=== PATIENT | male | born 1960 | race Caucasian/White ===

== ENCOUNTER 2021-10-22 12:36 | Inpatient (IN) ==
[2021-10-22] MEDS ORDERED: MoRPHine SULFATE 4 MG/ML 1 ML CARP\\VIAL IV PRN (13:09)
[2021-10-22] MEDS ORDERED: SODIUM CHLORIDE 0.9% 1000ML 1,000 ML IV STA (13:09)
[2021-10-22] MEDS ORDERED: ONDANSETRON INJ 2 MG/ML 2 ML VIAL IV STA (13:09)
--- NOTE | 2021-10-22 13:18 | Emergency Department Note ---
Impression & Plan Choledocholithiasis, Elevated LFTs, Obstructive jaundice ED Provider Note NAME: OBDULIO GUILLEN AGE: 60 SEX: M : 1960 ARRIVES VIA: Walk-In INFORMANT: Patient, ED PROVIDER(S): Dae Cardona DO CHIEF COMPLAINT: Chest pain HPI: The patient is a 60-year-old male who presented to the emergency department for an evaluation of chest pain. The patient describes a burning that starts in his epigastric region and goes up into his chest. He initially started noticing the symptoms earlier this month. They resolved without any issues. The patient states he had return of the symptoms approximately 2 to 3 days ago. They are b vin than when they started but they continue to occur. He notices it worsening with food. He notices pain that is burning behind his sternum. He went to see his family doctor today and had laboratory studies drawn as an outpatient. He also had an EKG. He was called today by his family doctor and told to go directly to the emergency department for further evaluation of abnormal liver function studies. The patient states he has noticed some right upper quadrant pain. He denies having any vomiting but does note nausea. He also notices some back pain. The patient is noticed no swelling in his legs or fever. He states the pain is mild at this time. ROS: See above HPI for pertinent positives & negatives. A total of 10 systems reviewed and were otherwise negative. PAST MEDICAL HISTORY: See Below PAST SURGICAL HISTORY: See Below FAMILY HISTORY: See Below SOCIAL HISTORY: See Below HOME MEDICATIONS: See Below ALLERGIES: See Below VITALS: See Below PHYSICAL EXAMINATION: GENERAL: Patient is awake alert in no acute distress patient is resting comfortably and showing no signs of anxiety EYES: The conjunctivae are clear. The pupils are round and reactive. EARS, NOSE, MOUTH AND THROAT: The nose is without any evidence of any deformity. Mucous membranes are moist. Tongue is midline. NECK: The neck is nontender and supple. RESPIRATORY: Normal respiratory effort is noted there is no evidence of wheezing rhonchi or rales CARDIOVASCULAR: Regular rate and rhythm noted there no murmurs rubs or gallops normal S1 normal S2. GASTROINTESTINAL: The abdomen is soft and mildly distended. There is right upper quadrant tenderness to palpation but no guarding rigidity. MUSCULOSKELETAL/EXTREMITIES: There is no evidence of gross deformity full range of motion is noted in the hips and shoulders. SKIN: There is no obvious evidence of any rash. There are no petechiae, pallor or cyanosis noted. NEUROLOGIC: Patient is awake alert and oriented x3 MEDICAL DECISION MAKING: The patient is a 60-year-old male who presented to the emergency department with a 3-day history of chest pain. The patient was seen by his primary care physician as an outpatient and was diagnosed with abnormal liver function studies. He was advised to come the emergency department for further evaluation. The patient did have reproducible right upper quadrant abdominal pain on physical exam. I discussed patient's laboratory and radiographic studies with him. He does appear to have a picture of obstructive jaundice. For this reason I discussed this case with the on-call gastroenterology group. The patient may require an ERCP. They have agreed to evaluate the patient in the emergency department for further management and disposition. I also discussed this case with the on-call [facility] hospitalist group. The patient was treated with IV fluids and IV antibiotics in the emergency department. Triage Nursing notes reviewed. Prior medical records reviewed Vital Signs: reviewed and remarkable for elevated blood pressure Differential diagnosis: Cardiac ischemia, aortic dissection, pulmonary embolism, pneumothorax, pneumonia, pericarditis, myocarditis, esophageal rupture, GERD, cholecystitis, pancreatitis, musculoskeletal, as well as other pathologies. ER treatment provided: See below Diagnostics interpreted by me: ECG: EKG was obtained in the emergency department. My interpretation is normal sinus rhythm at 55 bpm. There is no ectopy. There is no acute ST segment abnormalities noted. No previous tracings were available. Cardiac Monitoring: An order was placed for continuous cardiac monitoring. The monitor shows a rate of 54 bpm with sinus bradycardia. Laboratory studies: As stated above and show below. Imaging studies: See below Consultation(s): I discussed this case with Kassandra who is on-call for the [facility] hospitalist group. They will evaluate the patient in the emergency department I discussed this case with Felix who is on-call for [facility] gastroenterology. They will evaluate the patient in the emergency department for further management and disposition Past Med/Surg History Medical History High cholesterol Hypertension Social History Smoking Status: Never smoker Preferred Language: [place] Citizen Feels Safe at Home: Yes Allergies Allergies Allergy/AdvReac Type Severity Reaction Status Date / Time No Known Allergies Allergy Unverified 03/29/14 14:56 Home Meds Home Medications Medication Instructions Recorded Confirmed atenolol 50 mg tablet 50 mg PO DAILY 10/22/21 10/22/21 atorvastatin 20 mg tablet 20 mg PO DAILY 10/22/21 10/22/21 omeprazole 20 mg capsule,delayed 20 mg PO DAILY 10/22/21 10/22/21 release Results & Data (ED) Vital Signs Vital Signs - 24 hr 10/22/21 12:37 10/22/21 12:51 10/22/21 13:43 Temperature 36.4 C L Temperature Source Temporal Artery Scan Pulse Rate 66 Pulse Rate [Apical] Pulse Rhythm [Apical] Pulse Strength [Apical] Respiratory Rate 16 Respiratory Effort / Characteristics Non-Labored Spontaneous Respiratory Depth Normal Respiratory Pattern Blood Pressure 170/103 H Blood Pressure [Left Arm] Blood Pressure Mean 125 Blood Pressure Mean [Left Arm] Blood Pressure Position Sitting Blood Pressure Position [Left Arm] Pulse Oximetry 97 98 Oxygen Delivery Method Room Air Room Air Sepsis Recent Fever Within 48 Hours No Sepsis New/Unexplained Change in Mental Status No Sepsis Action Taken by Nursing No Action Required 10/22/21 13:48 10/22/21 14:00 10/22/21 14:30 Temperature Temperature Source Pulse Rate 67 60 57 L Pulse Rate [Apical] Pulse Rhythm [Apical] Pulse Strength [Apical] Respiratory Rate 19 24 Respiratory Effort / Characteristics Respiratory Depth Respiratory Pattern Blood Pressure Blood Pressure [Left Arm] Blood Pressure Mean Blood Pressure Mean [Left Arm] Blood Pressure Position Blood Pressure Position [Left Arm] Pulse Oximetry 96 96 95 Oxygen Delivery Method Sepsis Recent Fever Within 48 Hours Sepsis New/Unexplained Change in Mental Status Sepsis Action Taken by Nursing 10/22/21 17:50 Temperature 36.8 C Temperature Source Oral Pulse Rate Pulse Rate [Apical] 54 L Pulse Rhythm [Apical] Regular Pulse Strength [Apical] Normal Respiratory Rate 18 Respiratory Effort / Characteristics Non-Labored Spontaneous Respiratory Depth Normal Respiratory Pattern Regular Blood Pressure Blood Pressure [Left Arm] 177/97 H Blood Pressure Mean Blood Pressure Mean [Left Arm] 123 Blood Pressure Position Blood Pressure Position [Left Arm] Sitting Pulse Oximetry 98 Oxygen Delivery Method Room Air Sepsis Recent Fever Within 48 Hours Sepsis New/Unexplained Change in Mental Status Sepsis Action Taken by [facility] Medications Current Medication List: was personally reviewed by me Laboratory Data Attestation: I reviewed the patient's lab results. Result diagrams: 10/22/21 Unknown 10/22/21 Unknown Lab Results 10/22/21 10/22/21 10/22/21 Range/Units Unknown Unknown Unknown WBC 7.66 (4.8-10.8) K/uL RBC 5.31 (4.7-6.1) M/uL Hgb 16.5 (14.0-18.0) g/dL Hct 49.0 (42-52) % MCV 92.3 (80-100) fL MCH 31.1 (25-34) pg MCHC 33.7 (32-36) g/dL RDW Std Deviation 44.5 (36.4-46.3) fL RDW Coeff of Ham 13.3 (11.5-14.5) % Plt Count 282 (130-400) K/uL MPV 10.4 (7.4-10.4) fL Immature Gran % (Auto) 0.4 % Neut % (Auto) 63.2 % Lymph % (Auto) 20.1 % [place] % (Auto) 12.9 % Eos % (Auto) 2.9 % Baso % (Auto) 0.5 % Neut # (Auto) 4.84 (1.4-6.5) K/uL Lymph # (Auto) 1.54 (1.2-3.4) K/uL [place] # (Auto) 0.99 H (0.11-0.59) K/uL Eos # (Auto) 0.22 (0-0.5) K/uL Baso # (Auto) 0.04 (0-0.2) K/uL Immature Gran # (Auto) 0.03 H (0.00-0.02) K/uL PT 10.1 (9.0-12.0) Seconds INR 0.9 (0.9-1.1) APTT 24.2 (21.0-31.0) Seconds PTT Ratio 0.9 Sodium 137 (136-145) mmol/L Potassium 4.0 (3.5-5.1) mmol/L Chloride 107 (98-107) mmol/L Carbon Dioxide 22 (21-32) mmol/L Anion Gap 8 (3-11) BUN 15 (6-23) mg/dl Creatinine 0.99 (0.6-1.4) mg/dl Est Cr Clr Drug Dosing 97.9 ml/min Est GFR ( Amer) 95.5 ml/min Est GFR (Non-Af Amer) 82.4 ml/min BUN/Creatinine Ratio 15.2 (10-20) Glucose 91 (70-99(Fasting)) mg/dl Calcium 9.1 (8.5-10.1) mg/dl Total Bilirubin 4.0 H (0.2-1.0) mg/dl Direct Bilirubin 2.1 H (0-0.2) mg/dl AST 336 H (13-39) U/L ALT 848 H (7-52) U/L Alkaline Phosphatase 242 H (34-104) U/L Troponin I High Sens 4.5 (0-20) pg/ml Total Protein 7.0 (6.0-8.3) gm/dl Albumin 4.3 (3.4-5.0) gm/dl Globulin 2.7 (2.5-4.0) gm/dl Albumin/Globulin Ratio 1.6 (0.9-2) Lipase 43 (11-82) U/L Urine Color Urine Appearance (Clear) Urine pH (4.5-7.5) Ur Specific [place] (1.000-1.030) Urine Protein (Negative) Urine Glucose (UA) (Negative) Urine Ketones (Negative) Urine Blood (Negative) Urine Nitrite (Negative) Urine Bilirubin (Negative) Urine Urobilinogen (Negative) Ur Leukocyte Esterase (Negative) Urine WBC (Auto) (0-5) /hpf Urine RBC (Auto) (0-4) /hpf U Hyaline Cast (Auto) (0-5) /lpf U Epithel Cells (Auto) (0-5) /lpf Urine Bacteria (Auto) (Negative) SARS-CoV-2, RNA, NAAT (NEGATIVE) 10/22/21 10/22/21 Range/Units Unknown Unknown WBC (4.8-10.8) K/uL RBC (4.7-6.1) M/uL Hgb (14.0-18.0) g/dL Hct (42-52) % MCV (80-100) fL MCH (25-34) pg MCHC (32-36) g/dL RDW Std Deviation (36.4-46.3) fL RDW Coeff of Ham (11.5-14.5) % Plt Count (130-400) K/uL MPV (7.4-10.4) fL Immature Gran % (Auto) % Neut % (Auto) % Lymph % (Auto) % [place] % (Auto) % Eos % (Auto) % Baso % (Auto) % Neut # (Auto) (1.4-6.5) K/uL Lymph # (Auto) (1.2-3.4) K/uL [place] # (Auto) (0.11-0.59) K/uL Eos # (Auto) (0-0.5) K/uL Baso # (Auto) (0-0.2) K/uL Immature Gran # (Auto) (0.00-0.02) K/uL PT (9.0-12.0) Seconds INR (0.9-1.1) APTT (21.0-31.0) Seconds PTT Ratio Sodium (136-145) mmol/L Potassium (3.5-5.1) mmol/L Chloride (98-107) mmol/L Carbon Dioxide (21-32) mmol/L Anion Gap (3-11) BUN (6-23) mg/dl Creatinine (0.6-1.4) mg/dl Est Cr Clr Drug Dosing ml/min Est GFR ( Amer) ml/min Est GFR (Non-Af Amer) ml/min BUN/Creatinine Ratio (10-20) Glucose (70-99(Fasting)) mg/dl Calcium (8.5-10.1) mg/dl Total Bilirubin (0.2-1.0) mg/dl Direct Bilirubin (0-0.2) mg/dl AST (13-39) U/L ALT (7-52) U/L Alkaline Phosphatase (34-104) U/L Troponin I High Sens (0-20) pg/ml Total Protein (6.0-8.3) gm/dl Albumin (3.4-5.0) gm/dl Globulin (2.5-4.0) gm/dl Albumin/Globulin Ratio (0.9-2) Lipase (11-82) U/L Urine Color Dark Yellow Urine Appearance Clear (Clear) Urine pH 5.0 (4.5-7.5) Ur Specific [place] 1.026 (1.000-1.030) Urine Protein Negative (Negative) Urine Glucose (UA) Negative (Negative) Urine Ketones 1+ H (Negative) Urine Blood Negative (Negative) Urine Nitrite Positive A (Negative) Urine Bilirubin 2+ H (Negative) Urine Urobilinogen Negative (Negative) Ur Leukocyte Esterase Negative (Negative) Urine WBC (Auto) 1-5 (0-5) /hpf Urine RBC (Auto) 5-10 H (0-4) /hpf U Hyaline Cast (Auto) 1-5 (0-5) /lpf U Epithel Cells (Auto) 0-5 (0-5) /lpf Urine Bacteria (Auto) Negative (Negative) SARS-CoV-2, RNA, NAAT NEGATIVE (NEGATIVE) Administered Medications Morphine Sulfate (Morphine Sulfate 4 Mg/Ml 1 Ml Carp\Vial) 4 mg IV Q15M PRN PRN Reason: Pain Stop: 11/05/21 13:08 Last Admin: 10/22/21 13:38 Dose: 4 mg Documented by: [id number] Discontinued Medications Sodium Chloride (Nss 1000ml) 1,000 mls @ 999 mls/hr IV .Q1H1M STA Stop: 10/22/21 14:09 Last Infusion: 10/22/21 14:44 Dose: 0 mls/hr Documented by: [id number] Admin: 10/22/21 13:38 Dose: 999 mls/hr Documented by: [id number] Piperacillin Sod/Tazobactam Sod (Zosyn) 4.5 gm in 120 mls @ 240 mls/hr IV NOW ONE Stop: 10/22/21 16:21 Last Infusion: 10/22/21 17:02 Dose: 0 mls/hr Documented by: [id number] Admin: 10/22/21 16:30 Dose: 240 mls/hr Documented by: [id number] Ondansetron HCl (Ondansetron Inj 2 Mg/Ml 2 Ml Vial) 4 mg IV NOW STA Stop: 10/22/21 13:10 Last Admin: 10/22/21 13:38 Dose: 4 mg Documented by: [id number] Imaging Data Radiologist's Impression: Gallbladder Ultrasound 10/22/21 13:09 US gallbladder LIMITED ABDOMEN CLINICAL HISTORY: RUQ pain. COMPARISON: None. TECHNIQUE: Multiple grayscale and color images of the right upper quadrant of the abdomen. FINDINGS: Pancreas: The pancreas is within normal limits with no focal mass or peripancreatic fluid collection identified. Liver: The liver is homogeneous in echogenicity There is no evidence for a focal mass. There is evidence for intrahepatic biliary duct dilatation. Gallbladder: The gallbladder is filled with sludge. No definite calculi are seen. However, there is wall thickening measuring 4 mm. No sonographic Durbin sign is seen. Common Bile Duct: (CBD): There is dilatation of the common bile duct is well measuring 9 mm. Inferior Vena Cava (IVC): The imaged IVC is patent. Right kidney: There is evidence for an exophytic solid renal mass projecting from the mid body measuring 3.3 x 2.3 x 2.8 cm. The kidney is normal in size. IMPRESSION: 1. Gallbladder filled with sludge with wall thickening. No pericholecystic edema. 2. Dilatation of the common bile duct and intrahepatic biliary duct radicles. The presence of choledocholithiasis cannot be excluded. 3. Evidence for solid mass projecting exophytically from the mid body of the right kidney. 4. Follow-up CT of the abdomen and pelvis without and with contrast utilizing renal mass protocol along with MRCP could be obtained for further evaluation. ACT 112: Negative or not required by law. Electronically signed by: Murali Rodriguez M.D. 10/22/2021 3:19 PM KUB X-Ray 10/22/21 13:09 XR KUB/Abdomen 1 view CLINICAL HISTORY: RUQ pain. COMPARISON STUDY: 03/29/2014 TECHNIQUE: 2 supine radiographs of the abdomen FINDINGS: The bowel gas pattern is within normal limits without evidence for dilatation or obstruction. There is no evidence for organomegaly or gross intra-abdominal mass. No abnormal calcifications are seen along the course of the urinary tracts bilaterally. No acute osseous pathology. IMPRESSION: 1. No acute intra-abdominal abnormality. ACT 112: Negative or not required by law. Electronically signed by: Murali Rodriguez M.D. 10/22/2021 1:31 PM Chest X-Ray 10/22/21 13:10 XR chest 1V portable CLINICAL HISTORY: Right upper quadrant abdominal pain. COMPARISON STUDY: No previous studies for comparison. FINDINGS: Lung volumes are normal. Lungs are clear. There is no pneumothorax or pleural effusion. Cardiac size is normal. Mediastinal contours are normal. There is no evidence for pulmonary edema. IMPRESSION: No acute cardiopulmonary findings. ACT 112: Negative or not required by law. Electronically signed by: Raul Suarez M.D. 10/22/2021 1:33 PM Discharge Plan Visit Data Chief Complaint: Abdominal Pain Stated Complaint: BURNING IN ABDOMIN, BACK PAIN, REF BY ED Provider: Dae Cardona Discharge Problem: Choledocholithiasis, Elevated LFTs, Obstructive jaundice Patient Disposition: Being Evaluated by Hospitalist Discharge Instructions Interventions: ED Discharge Assessment Last Done: 10/22/21 17:48
--- NOTE | 2021-10-22 13:32 | XRay Report ---
XR KUB/Abdomen 1 view CLINICAL HISTORY: RUQ pain. COMPARISON STUDY: 03/29/2014 TECHNIQUE: 2 supine radiographs of the abdomen FINDINGS: The bowel gas pattern is within normal limits without evidence for dilatation or obstruction. There i s no evidence for organomegaly or gross intra-abdominal mass. No abnormal calcifications are seen annie ng the course of the urinary tracts bilaterally. No acute osseous pathology. IMPRESSION: 1. No acute intra-abdominal abnormality. ACT 112: Negative or not required by law. Electronically signed by: Murali Rodriguez M.D. 10/22/2021 1:31 PM
--- NOTE | 2021-10-22 13:34 | XRay Report ---
XR chest 1V portable CLINICAL HISTORY: Right upper quadrant abdominal pain. COMPARISON STUDY: No previous studies for comparison. FINDINGS: Lung volumes are normal. Lungs are clear. There is no pneumothorax or pleural effusion. Car diac size is normal. Mediastinal contours are normal. There is no evidence for pulmonary edema. IMPRESSION: No acute cardiopulmonary findings. ACT 112: Negative or not required by law. Electronically signed by: Raul Suarez M.D. 10/22/2021 1:33 PM
[2021-10-22 14:06] LABS: INR 0.9 (0.9-1.1); Partial Thromboplastin Ratio 0.9; Partial Thromboplastin Time 24.2 Seconds (21.0-31.0); Prothrombin Time 10.1 Seconds (9.0-12.0)
[2021-10-22 14:16] LABS: Troponin I High Sensitivity 4.5 pg/ml (0-20)
[2021-10-22 14:40] LABS: Basophils # (auto) 0.04 K/uL (0-0.2); Basophils % (auto) 0.5 %; Eosinophils # (auto) 0.22 K/uL (0-0.5); Eosinophils % (auto) 2.9 %; Hemoglobin 16.5 g/dL (14.0-18.0); Immature Granulocytes # (auto) 0.03 K/uL (0.00-0.02); Immature Granulocytes % (auto) 0.4 %; Lymphocytes # (auto) 1.54 K/uL (1.2-3.4); Lymphocytes % (auto) 20.1 %; Mean Corpuscular Hemoglobin 31.1 pg (25-34); Mean Corpuscular Hgb Conc 33.7 g/dL (32-36); Mean Corpuscular Volume 92.3 fL (80-100); Mean Platelet Volume 10.4 fL (7.4-10.4); Monocytes # (auto) 0.99 K/uL (0.11-0.59); Monocytes % (auto) 12.9 %; Neutrophils # (auto) 4.84 K/uL (1.4-6.5); Neutrophils % (auto) 63.2 %; Platelet Count 282 K/uL (130-400); RDW Coefficient of Variation 13.3 % (11.5-14.5); RDW Standard Deviation 44.5 fL (36.4-46.3); Red Blood Count 5.31 M/uL (4.7-6.1); White Blood Count 7.66 K/uL (4.8-10.8)
[2021-10-22 14:52] LABS: Albumin Globulin Ratio 1.6 (0.9-2); Albumin Level 4.3 gm/dl (3.4-5.0); BUN Creatinine Ratio 15.2 (10-20); Calcium 9.1 mg/dl (8.5-10.1); Creatinine Clr Calc Pharmacy 97.9 ml/min; Est GFR (African American) 95.5 ml/min; Est GFR (Non-African American) 82.4 ml/min; Globulin 2.7 gm/dl (2.5-4.0)
[2021-10-22 15:16] LABS: Bilirubin Direct 2.1 mg/dl (0-0.2)
--- NOTE | 2021-10-22 15:21 | Ultrasound Report ---
US gallbladder LIMITED ABDOMEN CLINICAL HISTORY: RUQ pain. COMPARISON: None. TECHNIQUE: Multiple grayscale and color images of the right upper quadrant of the abdomen. FINDINGS: Pancreas: The pancreas is within normal limits with no focal mass or peripancreatic fluid collection identified. Liver: The liver is homogeneous in echogenicity There is no evidence for a focal mass. There is evide nce for intrahepatic biliary duct dilatation. Gallbladder: The gallbladder is filled with sludge. No definite calculi are seen. However, there is w all thickening measuring 4 mm. No sonographic Durbin sign is seen. Common Bile Duct: (CBD): There is dilatation of the common bile duct is well measuring 9 mm. Inferior Vena Cava (IVC): The imaged IVC is patent. Right kidney: There is evidence for an exophytic solid renal mass projecting from the mid body measur ing 3.3 x 2.3 x 2.8 cm. The kidney is normal in size. IMPRESSION: 1. Gallbladder filled with sludge with wall thickening. No pericholecystic edema. 2. Dilatation of the common bile duct and intrahepatic biliary duct radicles. The presence of choledo cholithiasis cannot be excluded. 3. Evidence for solid mass projecting exophytically from the mid body of the right kidney. 4. Follow-up CT of the abdomen and pelvis without and with contrast utilizing renal mass protocol annie ng with MRCP could be obtained for further evaluation. ACT 112: Negative or not required by law. Electronically signed by: Murali Rodriguez M.D. 10/22/2021 3:19 PM
[2021-10-22] MEDS ORDERED: PIPERACILL/TAZOBAC CONSULT ACTIVE PRN ×2 (15:52→19:47)
[2021-10-22] MEDS ORDERED: PIPERACILLIN/TAZOBACTAM 4.5 GM/120 ML BAG IV ONE (15:52)
--- NOTE | 2021-10-22 16:01 | Electrocardiogram Report ---
Test Reason : Blood Pressure : / mmHG Vent. Rate : 055 BPM Atrial Rate : 055 BPM P-R Int : 194 ms QRS Dur : 086 ms QT Int : 460 ms P-R-T Axes : 059 003 012 degrees QTc Int : 440 ms Poor data quality, interpretation may be adversely affected Sinus bradycardia Otherwise normal ECG No previous ECGs available Confirmed by Dae Woodall ([id number]) on 10/22/2021 4:01:13 PM Referred By: REFERRED SELF Confirmed By:Dae Woodall
[2021-10-22] MEDS ORDERED: INDOMETHACIN 50 MG SUPP PR ONE (16:08)
--- NOTE | 2021-10-22 16:18 | Gastrointestinal Consultation ---
Date of Consultation October 22, 2021 Assessment & Plan (1) Dilated cbd, acquired: (2) Elevated LFTs: (3) Gallbladder sludge: Pt is a 60 yo male, with abd pain, dark urine, elevated LFTs, noted to have dilated CBD and gallbladder sludge on US. Suspect choledocholithiasis. - Keep NPO - ERCP in OR by Dr. Mata today - IV antibx - Renal mass workup per primary - Recommend Surgery eval after ERCP for possible cholecystectomy Supervising Physician Co-Signing Physician Notes I saw and evaluated the patient. He presents with several days of intermittent biliary colic. He visited his primary care provider today and was found to have a significant elevation of his liver associated enzymes. Ultrasound imaging in the emergency room shows evidence of a dilated common bile duct and choledocholithiasis within the gallbladder. The patient reports that due to postprandial nausea his last meal was yesterday evening. He did have some seltzer water earlier today but it is clear liquid. Physical examination Scleral icterus noted Right upper quadrant tenderness noted Impression: Presenting with signs and symptoms suggestive of choledocholithiasis. Based on the patient's bilirubin of being greater than 3.5 this time pretest probability for choledocholithiasis is very high. Given this we will proceed with ERCP at next available. I have discussed the risks and benefits of ERCP to include bleeding, infection, perforation, pain, pancreatitis, failed biliary cannulation, and need for follow-up studies with the patient. Recommendations n.p.o. IV hydration, agree with broad-spectrum antibiotic coverage, ERCP at next available, general surgery consultation to discuss cholecystectomy History of Present Illness Reason for Consultation: Abd pain, elevated LFTs, jaundice Requesting Physician: Dr. Dae Cardona Attending Physician: Dr. Kylah Mata History of Present Illness Pt is a 60 yo female who was referred to the ED for elevated LFTs. He had symptoms of burning abd pain radiating mid chest up esophagus area and back, which felt like heartburn starting on 10/02; also had dark urine. Symptoms persist and today, decided he'd get evaluated by PCP. EKG, labs ordered, sent to ED for elevated LFTs. Denies fever, chills, n/v. LFTs: Tbili 4, AST 336, ALT 848, Alk 242, Lipase 43. Gallbladder u/s: 1. Gallbladder filled with sludge with wall thickening. No pericholecystic edema. 2. Dilatation of the common bile duct and intrahepatic biliary duct radicles. The presence of choledocholithiasis cannot be excluded. 3. Evidence for solid mass projecting exophytically from the mid body of the right kidney. 4. Follow-up CT of the abdomen and pelvis without and with contrast utilizing renal mass protocol along with MRCP could be obtained for further evaluation. Allergies Allergy/AdvReac Type Severity Reaction Status Date / Time No Known Allergies Allergy Unverified 03/29/14 14:56 Home Medications Medication Instructions Recorded Confirmed Type atenolol 50 mg tablet 50 mg PO DAILY 10/22/21 10/22/21 History atorvastatin 20 mg tablet 20 mg PO DAILY 10/22/21 10/22/21 History omeprazole 20 mg capsule,delayed 20 mg PO DAILY 10/22/21 10/22/21 History release Patient History Medical History High cholesterol Hypertension Social History Smoking Status: Never smoker Preferred Language: Greek Feels Safe at Home: Yes Review of Systems Review of Systems: All systems reviewed & are unremarkable except as noted in HPI & below Physical Exam Constitutional: WD/WN, vitals as above well groomed, cooperative and comfortable Eyes: mild icteric sclera ENMT: external ear and nose normal, oropharynx normal Respiratory: normal respiratory effort, lungs clear to auscultation Cardiovascular: RRR, no murmur, no edema Gastrointestinal (Abdomen): normal bowel sounds, soft, nontender, no hepat osplenomegaly Skin: no rashes, warm and dry no jaundice Psychiatric: A+Ox3, euthymic affect Lymphatic: no lymphedema Results & Data ([facility]) Vital Signs (Past 12 Hours) Vital Signs Temp Pulse Resp BP Pulse Ox 10/22/21 14:30 57 L 24 95 10/22/21 14:00 60 96 10/22/21 13:48 67 19 96 10/22/21 13:43 98 10/22/21 12:51 36.4 C L 66 16 170/103 H 97
[2021-10-22 16:22] LABS: Appearance Urine Clear (Clear); Bacteria Urine Automated Negative (Negative); Blood Urine Negative (Negative); Color Urine Dark Yellow; Epithelial Cell Urine Auto 0-5 /lpf (0-5); Glucose Urine UA Negative (Negative); Ketones Urine 1+ (Negative); Leukocyte Esterase Urine Negative (Negative); Nitrite Urine Positive (Negative); Protein Urine Negative (Negative); Specific Gravity Urine 1.026 (1.000-1.030); Urobilinogen Urine Negative (Negative)
[2021-10-22] MEDS ORDERED: INDOMETHACIN 50 MG SUPP PR STA (16:33)
[2021-10-22 16:45] LABS: Bilirubin Urine 2+ (Negative)
--- NOTE | 2021-10-22 18:13 | Anesthesiology Consultation ---
Date of Service October 22, 2021 Assessment & Plan Chart Review Chart Review: Acceptable Risk for Surgery and Patient NOT seen in Pre Admission Testing Consults Requested none ASA ASA2 Proposed Anesthesia Anesthesia Type: General Risk / Benefits Reviewed With: PT / POA / Parent / Guardian, Accepts Plan and Informed Consent Obtained History Surgery Operation Date: 10/22/21 17:55 Proposed Procedures p Endoscopic Retrograde Cholangiopancreato - Kylah Mata, Height/Weight Height: 6 ft Weight: 101.6 kg Allergies Allergy/AdvReac Type Severity Reaction Status Date / Time No Known Allergies Allergy Unverified 03/29/14 14:56 Medications Home Medications Medication Instructions Recorded Confirmed Last Taken atenolol 50 mg tablet 50 mg PO DAILY 10/22/21 10/22/21 Unknown atorvastatin 20 mg tablet 20 mg PO DAILY 10/22/21 10/22/21 Unknown omeprazole 20 mg capsule,delayed 20 mg PO DAILY 10/22/21 10/22/21 Unknown release Active Medications Generic Name Dose Route Start Last Admin Trade Name Freq PRN Reason Stop Dose Admin Morphine Sulfate 4 mg 10/22/21 13:09 10/22/21 13:38 Morphine Sulfate 4 Mg/Ml 1 Ml Carp\\Vial IV 11/05/21 13:08 4 mg Q15M PRN Administration Pain NPO Date Last Intake of Fluids: 10/22/21 Time Last Intake of Fluids: 11:00 Last Intake of Fluids Comment: "sips of water" Date Last Intake of Solids: 10/21/21 Time Last Intake of Solids: 23:00 Past Medical History Medical History High cholesterol Hypertension Exercise / Class Metabolic Activity II 4-5 Yardwork/Stairs/Walk up hill Past Anesthesia History No Hx of Anesthesia Complications and No Family Hx of Anesthesia Complications History of PONV No Hx of PONV and No Hx of Motion Sickness Social History Smoking Status: Never smoker Physical Exam Vital Signs Last Vital Signs Temp 36.8 C 10/22/21 17:50 Pulse 54 L 10/22/21 17:50 Resp 18 10/22/21 17:50 BP 177/97 H 10/22/21 17:50 Pulse Ox 98 10/22/21 17:50 ENMT Mouth: no dentition abnormality Thyromental Distance: > or= 3.5 Finger Breadths Mallampati Class: II Neck normal visual inspection Respiratory normal respiratory effort Auscultation: lungs clear to auscultation bilaterally Cardiovascular Rate/Rhythm: regular rate and regular rhythm Psychiatric Orientation: alert Testing Laboratory Results 10/22/21 Unknown 10/22/21 Unknown PT 10.1 Seconds (9.0-12.0) 10/22/21 Unknown INR 0.9 (0.9-1.1) 10/22/21 Unknown APTT 24.2 Seconds (21.0-31.0) 10/22/21 Unknown Urine Color Dark Yellow 10/22/21 Unknown Urine Appearance Clear (Clear) 10/22/21 Unknown Urine pH 5.0 (4.5-7.5) 10/22/21 Unknown Ur Specific [place] 1.026 (1.000-1.030) 10/22/21 Unknown Urine Protein Negative (Negative) 10/22/21 Unknown Urine Glucose (UA) Negative (Negative) 10/22/21 Unknown Urine Ketones 1+ (Negative) H 10/22/21 Unknown Urine Nitrite Positive (Negative) A 10/22/21 Unknown Ur Leukocyte Esterase Negative (Negative) 10/22/21 Unknown Urine WBC (Auto) 1-5 /hpf (0-5) 10/22/21 Unknown Urine RBC (Auto) 5-10 /hpf (0-4) H 10/22/21 Unknown U Hyaline Cast (Auto) 1-5 /lpf (0-5) 10/22/21 Unknown U Epithel Cells (Auto) 0-5 /lpf (0-5) 10/22/21 Unknown Urine Bacteria (Auto) Negative (Negative) 10/22/21 Unknown
[2021-10-22] MEDS ORDERED: ATROPINE SULFATE 0.1 MG/ML 10ML SYR IV PRN (18:14)
[2021-10-22] MEDS ORDERED: ONDANSETRON INJ 2 MG/ML 2 ML VIAL IV PRN ×2 (18:14→19:47)
[2021-10-22] MEDS ORDERED: ePHEDrine sulfate 50 MG/ML AMP IV PRN (18:14)
[2021-10-22] MEDS ORDERED: PROMETHAZINE HCL 6.25 MG in SODIUM CHLORIDE 0.9% 50 ML IV PRN (18:14)
[2021-10-22] MEDS ORDERED: fentaNYL citrate 100 MCG/2 ML VIAL IV PRN (18:14)
[2021-10-22] MEDS ORDERED: LIDOCAINE 2% 2 ML VIAL/AMP(20MG/ML) INFIL ONE (18:23)
[2021-10-22] MEDS ORDERED: ONDANSETRON INJ 2 MG/ML 2 ML VIAL ONE (18:23)
[2021-10-22] MEDS ORDERED: SUCCINYLCHOLINE CHLORIDE 20 MG/ML 10 ML VIAL IV ONE (18:23)
[2021-10-22] MEDS ORDERED: PROPOFOL IV EMULSION 10 MG/ML 20 ML VIAL IV ONE (18:23)
[2021-10-22] MEDS ORDERED: MIDAZOLAM HCL 1 MG/ML 2ML VIAL ONE (18:23)
[2021-10-22] MEDS ORDERED: fentaNYL citrate 100 MCG/2 ML VIAL ONE (18:23)
[2021-10-22] MEDS ORDERED: DEXAMETHASONE SOD INJ 4 MG/ML VIAL ONE (18:23)
--- NOTE | 2021-10-22 19:08 | GI REPORT ---
Patient Name: Jose Rafael Tobin Procedure Date: 10/22/2021 4:57 PM Date of : 1960 Admit Type: Emergency Department Age: 60 Gender: Male Attending MD: Kylah Mata DO Procedure: ERCP Providers: Kylah Mata DO Referring MD: Dae Cardona Indications: Abdominal pain of suspected biliary origin, Jaundice, Elevated liver enzymes Medicines: General Anesthesia Complications: No immediate complications. Estimated blood loss: Minimal. Estimated Blood Loss: Estimated blood loss was minimal. Procedure: Pre-Anesthesia Assessment: - Prior to the procedure, a History and Physical was performed, and patient medications, allergies and sensitivities were reviewed. The patient's tolerance of previous anesthesia was reviewed. - The risks and benefits of the procedure and the sedation options and risks were discussed with the patient. All questions were answered and informed consent was obtained. - Patient identification and proposed procedure were verified prior to the procedure by the physician, the nurse and the coremaker helper. The procedure was verified in the procedure room. - Pre-procedure physical examination revealed no contraindications to sedation. - ASA Grade Assessment: III - A patient with severe systemic disease. - After reviewing the risks and benefits, the patient was deemed in satisfactory condition to undergo the procedure. - The anesthesia plan was to use monitored anesthesia care (MAC). - Immediately prior to administration of medications, the patient was re-assessed for adequacy to receive sedatives. - The heart rate, respiratory rate, oxygen saturations, blood pressure, adequacy of pulmonary ventilation, and response to care were monitored throughout the procedure. - The physical status of the patient was re-assessed after the procedure. After obtaining informed consent, the scope was passed under direct vision. Throughout the procedure, the patient's blood pressure, pulse, and oxygen saturations were monitored continuously. The Duodenoscope was introduced through the mouth, and advanced to the duodenum and used to cannulate the bile duct. The ERCP was accomplished without difficulty. The patient tolerated the procedure well. Findings: The registered medical assistant film was normal. The esophagus was successfully intubated under direct vision without detailed examination of the pharynx, larynx, and associated structures, and upper GI tract. The upper GI tract was grossly normal. The major papilla was congested. The bile duct was deeply cannulated with the short-nosed traction sphincterotome and guidewire. Contrast was injected. I personally interpreted the bile duct images. Contrast extended to the hepatic ducts. The biliary orifice was stenotic. This appeared benign. The lower third of the main bile duct contained filling defect(s) thought to be a stone. Biliary sphincterotomy was made with a Fusion OMNI sphincterotome using ERBE electrocautery. There was no post-sphincterotomy bleeding. To discover objects, the biliary tree was swept with a 12 mm balloon starting at the bifurcation. Sludge was swept from the duct. Two stones were removed. No stones remained. One 10 Fr by 7 cm biliary stent with a single external flap and a single internal flap was placed 7 cm into the common bile duct. Bile flowed through the stent. The stent was in good position. The endoscope was withdrawn from the patient. The total fluoroscopy exposure time was 22 seconds. Indomethacin 100 mg was given via suppository to decrease the risk of post-ERCP pancreatitis (PEP). Impression: - The major papilla appeared congested. - Biliary papillary stenosis, benign. - Choledocholithiasis was found. Complete removal was accomplished by biliary sphincterotomy and balloon extraction. - A biliary sphincterotomy was performed. - One biliary stent was placed into the common bile duct. - Indomethacin given to decrease risk of post-ERCP pancreatitis. Recommendation: - Avoid aspirin and nonsteroidal anti-inflammatory medicines for 1 week. - Clear liquid diet today. - Use broad spectrum antibiotics for 10 days. - Repeat ERCP in 6 weeks to remove stent. - Refer to a surgeon to disucss cholecystectomy. Kylah Mata D.O. Kylah Mata, 10/22/2021 7:07:27 PM This report has been signed electronically. Note Initiated On: 10/22/2021 4:57 PM Number of Addenda: 0 I attest to the content of the Intraoperative Record and orders documented therein, exceptions below {[id number]}
--- NOTE | 2021-10-22 19:08 | Post Operative Brief Note ---
Immediate Post Op Note v1 Date of Surgery October 22, 2021 Pre & Post Diagnosis Operation Date: 10/22/21 17:55 Pre-Op Diagnosis: Choledocholithiasis Post-Op Diagnosis: Choledocholithiasis I identified the patient and participated in the time-out.: Yes Procedure Operation Date: 10/22/21 17:55 Actual Procedures p Endoscopic Retrograde Cholangiopancreatogram, with Biliary Stent Placement(Not Applicable) - Kylah Mata DO Surgeon Kylah Mata DO Dermatologist none Estimated Blood Loss 0 Findings Consistent with Post-Op Diagnosis
--- NOTE | 2021-10-22 19:18 | Communication Note ---
Date of Service: October 22, 2021 The patient underwent ERCP this evening for suspected choledocholithiasis. We found evidence of stones within the common bile duct and thick sludge within the biliary tree. A biliary sphincterotomy was performed, gallstone extraction performed and a biliary stent was placed. Recommendations Patient may have clear liquids from our perspective this evening Avoid nonsteroidals for 1 week Continue antibiotics for total of 10 days Repeat ERCP for stent removal in 6 weeks General surgery consultation to discuss timing of cholecystectomy Please call with any questions or concerns
--- NOTE | 2021-10-22 19:52 | Anesthesiology Progress Note ---
Date of Service October 22, 2021 Anesthesia Post Procedure Vital Signs Vital Signs: Temp Pulse Pulse Resp BP BP Pulse Ox 10/22/21 19:25 36.2 C L 59 L 16 130/80 97 10/22/21 19:20 62 16 122/78 96 10/22/21 19:14 36.0 C L 73 16 148/78 H 93 10/22/21 17:50 36.8 C 54 L 18 177/97 H 98 10/22/21 14:30 57 L 24 95 10/22/21 14:00 60 96 10/22/21 13:48 67 19 96 10/22/21 13:43 98 10/22/21 12:51 36.4 C L 66 16 170/103 H 97 Transfer of Care Handoff Completed per policy Notes Mental Status: alert / awake / arousable Patient Amnestic to Procedure: Yes Nausea / Vomiting: adequately controlled Pain: adequately controlled Airway Patency, RR, SpO2: stable & adequate BP & HR: stable & adequate Hydration State: stable & adequate Anesthetic Complications: no major complications apparent
[2021-10-22] MEDS: D5W AND NSS 1,000 ML IV SCH (19:56)
--- NOTE | 2021-10-22 19:59 | Fluoroscopy Report ---
INTRAOPERATIVE RADIOGRAPHS CLINICAL HISTORY: ERCP. Fluoroscopy time: 22 seconds. FINDINGS: 3 spot fluoroscopic views of the right upper quadrant are correlated with abdominal ultraso und dated 10/22/2021. There is smooth contrast opacification of the common bile duct. There is mild in tra and extrahepatic biliary ductal dilatation. IMPRESSION: Intraoperative ERCP images as above. See operative report for detailed findings. Electronically signed by: Noble Frost M.D. 10/22/2021 7:58 PM
--- NOTE | 2021-10-22 20:12 | History & Physical Report ---
Date of Service October 22, 2021 Assessment & Plan (1) Elevated LFTs: (2) Gallbladder sludge: (3) Right kidney mass: (4) HTN (hypertension): (5) HLD (hyperlipidemia): (6) MICHAEL (obstructive sleep apnea): Plan: Pt is a 60 y/o M with hx of HTN, HLD, MICHAEL (not on CPAP), GERD admitted for elevated LFTs with Gallstones Elevated LFTs with Gallbladder sludge and dilated common bile duct: -pt is currently asymptomatic - VSS - GI consulted: pt underwent ERCP-stone removed within the common bile duct, biliary sphincterectomy with biliary stent placement. -Spoke to Surgery: possible cholecystectomy [place] --- thus NPO -will do D5 NS maintenance fluids -will continue zosyn as empiric treatment for now UA + for nitrite: -pt denied any urinary symptoms except for dark urine -currently on Zosyn for empiric treatment for gallstone and possible cholecystitis -not suspecting UTI incidental Solid mass of the R kidney: -pt denied any hx of hematuria -denied any acute back pain -will get CT abd to evaluate the renal mass HTN/HLD/GERD: -will continue current home meds Diet: NPO DVT PPx: SCD Code Status:FULL CODE Admission and Anticipated Discharge Date Admission Date: October 22, 2021 History of Present Illness Chief Complaint: Elevated LFTs with prior hx of abd pain Primary Care Provider: Rufino Velasquez DO Pt is a 60 y/o M with hx of HTN, HLD, MICHAEL (not on CPAP), GERD came into the ER for 2 episodes of abd burning pain. Abd pain starts at the lower abd then radiates to the epigastric area. No associated N/V, dizziness, diarrhea or CP or SOB. He also noticed that his urine was dark in colour recently but denied any dysuria, hematuria, urinary frequency/urgency or fever. He had labs done at the clinic today, his LFTs were elevated therefore he was asked to go to the ER At bedside: pt denied any acute symptoms. Allergies Allergy/AdvReac Type Severity Reaction Status Date / Time No Known Allergies Allergy Unverified 03/29/14 14:56 Home Medications Medication Instructions Recorded Confirmed Type atenolol 50 mg tablet 50 mg PO DAILY 10/22/21 10/22/21 History atorvastatin 20 mg tablet 20 mg PO DAILY 10/22/21 10/22/21 History omeprazole 20 mg capsule,delayed 20 mg PO DAILY 10/22/21 10/22/21 History release Past Med/Surg History Medical History High cholesterol Hypertension Social History Smoking Status: Never smoker Hx Alcohol Use: No Hx Substance Use: No Preferred Language: German Communication Ability: Effective Retention Manager Required: No Beliefs That Will Affect Care: None Current Living Situation: Alone Feels Safe at Home: Yes Safety Concerns: Feels Safe At This Time Assistive Devices: Glasses Review of Systems Review of Systems: At least 10 Review of systems were reviewed and all negative except as indicated in HPI Physical Exam Physical Exam: General:. NAD, well developed, well nourished, average body habitus HEENT:. Normocephalic and atraumatic, Normal Conjunctiva, EOMI, Sclera is non- icteric Lungs:. No signs of respiratory distress, CTA, no wheezing or crackles Heart:. Normal S1, S2, no murmur Abdominal:.obese abd, ND, Soft, NT, normal BS MSK:. No deformities of UE and LE, No leg edema Skin:. no rash or open wound Psych:. AAOx3, normal affect Results & Data Results & Data ([facility]) Vital Signs (Past 12 Hours) Vital Signs Temp Pulse Pulse Resp BP BP Pulse Ox 10/22/21 19:25 36.2 C L 59 L 16 130/80 97 10/22/21 19:20 62 16 122/78 96 10/22/21 19:14 36.0 C L 73 16 148/78 H 93 10/22/21 17:50 36.8 C 54 L 18 177/97 H 98 10/22/21 14:30 57 L 24 95 10/22/21 14:00 60 96 10/22/21 13:48 67 19 96 10/22/21 13:43 98 10/22/21 12:51 36.4 C L 66 16 170/103 H 97 Laboratory Results Short CBC 10/22/21 Range/Units Unknown WBC 7.66 (4.8-10.8) K/uL Hgb 16.5 (14.0-18.0) g/dL Hct 49.0 (42-52) % Plt Count 282 (130-400) K/uL BMP 10/22/21 Unknown Sodium 137 Potassium 4.0 Chloride 107 Carbon Dioxide 22 BUN 15 Creatinine 0.99 Glucose 91 Calcium 9.1 Liver Function 10/22/21 Range/Units Unknown Total Bilirubin 4.0 H (0.2-1.0) mg/dl Direct Bilirubin 2.1 H (0-0.2) mg/dl AST 336 H (13-39) U/L ALT 848 H (7-52) U/L Alkaline Phosphatase 242 H (34-104) U/L Albumin 4.3 (3.4-5.0) gm/dl Urine 10/22/21 Range/Units Unknown Urine Color Dark Yellow Urine Appearance Clear (Clear) Urine pH 5.0 (4.5-7.5) Ur Specific [place] 1.026 (1.000-1.030) Urine Protein Negative (Negative) Urine Glucose (UA) Negative (Negative) Diagnostic Findings Gallbladder Ultrasound 10/22/21 13:09 US gallbladder LIMITED ABDOMEN CLINICAL HISTORY: RUQ pain. COMPARISON: None. TECHNIQUE: Multiple grayscale and color images of the right upper quadrant of the abdomen. FINDINGS: Pancreas: The pancreas is within normal limits with no focal mass or peripancreatic fluid collection identified. Liver: The liver is homogeneous in echogenicity There is no evidence for a focal mass. There is evidence for intrahepatic biliary duct dilatation. Gallbladder: The gallbladder is filled with sludge. No definite calculi are seen. However, there is wall thickening measuring 4 mm. No sonographic Durbin sign is seen. Common Bile Duct: (CBD): There is dilatation of the common bile duct is well measuring 9 mm. Inferior Vena Cava (IVC): The imaged IVC is patent. Right kidney: There is evidence for an exophytic solid renal mass projecting from the mid body measuring 3.3 x 2.3 x 2.8 cm. The kidney is normal in size. IMPRESSION: 1. Gallbladder filled with sludge with wall thickening. No pericholecystic edema. 2. Dilatation of the common bile duct and intrahepatic biliary duct radicles. The presence of choledocholithiasis cannot be excluded. 3. Evidence for solid mass projecting exophytically from the mid body of the right kidney. 4. Follow-up CT of the abdomen and pelvis without and with contrast utilizing renal mass protocol along with MRCP could be obtained for further evaluation. ACT 112: Negative or not required by law. Electronically signed by: Murali Rodriguez M.D. 10/22/2021 3:19 PM KUB X-Ray 10/22/21 13:09 XR KUB/Abdomen 1 view CLINICAL HISTORY: RUQ pain. COMPARISON STUDY: 03/29/2014 TECHNIQUE: 2 supine radiographs of the abdomen FINDINGS: The bowel gas pattern is within normal limits without evidence for dilatation or obstruction. There is no evidence for organomegaly or gross intra-abdominal mass. No abnormal calcifications are seen along the course of the urinary tracts bilaterally. No acute osseous pathology. IMPRESSION: 1. No acute intra-abdominal abnormality. ACT 112: Negative or not required by law. Electronically signed by: Murali Rodriguez M.D. 10/22/2021 1:31 PM Chest X-Ray 10/22/21 13:10 XR chest 1V portable CLINICAL HISTORY: Right upper quadrant abdominal pain. COMPARISON STUDY: No previous studies for comparison. FINDINGS: Lung volumes are normal. Lungs are clear. There is no pneumothorax or pleural effusion. Cardiac size is normal. Mediastinal contours are normal. There is no evidence for pulmonary edema. IMPRESSION: No acute cardiopulmonary findings. ACT 112: Negative or not required by law. Electronically signed by: Raul Suarez M.D. 10/22/2021 1:33 PM Endo Retro Cholangiopancreatogram 10/22/21 18:00 INTRAOPERATIVE RADIOGRAPHS CLINICAL HISTORY: ERCP. Fluoroscopy time: 22 seconds. FINDINGS: 3 spot fluoroscopic views of the right upper quadrant are correlated with abdominal ultrasound dated 10/22/2021. There is smooth contrast opacification of the common bile duct. There is mild intra and extrahepatic biliary ductal dilatation. IMPRESSION: Intraoperative ERCP images as above. See operative report for detailed findings. Electronically signed by: Noble Frost M.D. 10/22/2021 7:58 PM Code Status & VTE Plan VTE Prophylaxis Plan VTE Prophylaxis will be ordered: Yes
[2021-10-22] MEDS ORDERED: hydrALAZINE HCL 20 MG/ML VIAL IV STA (20:40)
--- NOTE | 2021-10-22 20:52 | Surgery Consultation ---
Date of Consultation October 22, 2021 Assessment & Plan (1) Choledocholithiasis: Due to the patient's finding of choledocholithiasis a general surgery consultation has been requested. We recommend proceeding as follows: Provide analgesics Provide antiemetics Follow serial labs Continue IV fluids for hydration Implement n.p.o. status after midnight tonight We will tentatively plan for cholecystectomy on 10/23/[address] Orantes Additional recommendations will be forthcoming based on operative findings and his postoperative course as it unfolds Supervising Physician Co-Signing Physician Notes I personally saw and evaluated the patient with Александр Langston PA-C and agree with the assessment and plan. 60-year-old male with acute cholecystitis and choledocholithiasis status post ERCP yesterday ERCP notes and images reviewed by me We will proceed with laparoscopic cholecystectomy, possible open, possible intraoperative cholangiogram Consent obtained, risks discussed including bleeding, infection, bile leak, ductal injury History of Present Illness Reason for Consultation: Evaluation for cholecystectomy Attending Physician: Tamia Rodriguez MD History of Present Illness This is a 60-year-old male who says he leads a fairly active lifestyle. 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 He notes that his job requires strenuous physical activity which he can accomplish without any limitations when he is feeling well. The patient notes that earlier this month he developed some vague abdominal pain. He notes that the pain was unrelated to any meals and was present in a generalized fashion throughout his abdomen. He notes that this pain lasted approximately 1 day and self resolved. He notes that the pain recurred several days ago and was again unrelated to meals. He denied any nausea or vomiting. He denied any fevers, shakes, chills. He also denied any diarrhea. Again he notes that the pain was located throughout his entire abdomen in a generalized fashion without radiation or modifying factors. Patient sought medical attention at the emergency department today where he underwent a gallbladder ultrasound that showed that he had a gallbladder filled with sludge. Gallbladder wall thickening was noted. There is no pericholecystic edema. The common bile duct was noted to be dilated. A KUB was performed that showed no evidence of intra-abdominal abnormalities. A chest x- ray was performed that showed no evidence of pneumonia. Due to the presence of biliary ductal dilatation the patient underwent an ERCP with patient was noted to have choledocholithiasis. Patient had a biliary stent placed. Patient also had labs today were CBC revealed white blood cell count, hemoglobin, hematocrit, and platelet count were all normal. Coagulation studies were noted to be normal. Chemistry profile showed sodium, potassium, BUN, and creatinine were all normal. He had elevated LFTs with a total bilirubin of 4.0 and a direct bilirubin of 2.1. His AST and ALT were 336 and 848 respectively. His alkaline phosphatase was 242. Lipase was nonelevated. Urinalysis was not indicative of infection. A COVID test was noted to be negative. Patient also underwent an EKG that showed sinus bradycardia without any changes indicative of acute ischemia. Visit with the patient following his ERCP at the time of my exam he was resting comfortably in bed without any pain. He was in no distress. Allergies Allergy/AdvReac Type Severity Reaction Status Date / Time No Known Allergies Allergy Unverified 03/29/14 14:56 Home Medications Medication Instructions Recorded Confirmed Type atenolol 50 mg tablet 50 mg PO DAILY 10/22/21 10/22/21 History atorvastatin 20 mg tablet 20 mg PO DAILY 10/22/21 10/22/21 History omeprazole 20 mg capsule,delayed 20 mg PO DAILY 10/22/21 10/22/21 History release Patient History Medical History High cholesterol Hypertension Social History Smoking Status: Never smoker Hx Alcohol Use: No Hx Substance Use: No Preferred Language: French Communication Ability: Effective Travel Ticketing Reviewer Required: No Beliefs That Will Affect Care: None Current Living Situation: Alone Feels Safe at Home: Yes Safety Concerns: Feels Safe At This Time Assistive Devices: Glasses Review of Systems Constitutional: no fever and no chills Eyes: no diplopia Ear, Nose, Mouth, Throat: no ear pain Respiratory: no cough Cardiovascular: no chest pain Gastrointestinal: + abdominal pain; no nausea, no vomiting and no diarrhea/loose stools Genitourinary: no dysuria Musculoskeletal: no back pain Integumentary: no rash Neurologic: no localized weakness Physical Exam Constitutional: well developed and well nourished; no acute distress Eyes: no conjunctival abnormality ENMT: Ears: no hearing impairment and no external ear abnormality Mouth: no oropharynx abnormality Neck: trachea midline Respiratory: normal respiratory effort; no respiratory distress and no labored breathing Cardiovascular: Rate/Rhythm: regular rate and regular rhythm Gastrointestinal (Abdomen): Abdomen is soft. There is minimal distention. Bowel sounds are present. There is minimal to no pain with palpation. Musculoskeletal: No calf tenderness Skin: no rashes Neurologic: moves all extremities Psychiatric: A+Ox3, euthymic affect Results & Data ([facility]) Vital Signs (Past 12 Hours) Vital Signs Temp Pulse Pulse Pulse Resp BP BP 10/22/21 20:48 54 L 20 190/92 H 10/22/21 20:40 36.3 C L 52 L 18 177/95 H 10/22/21 20:29 52 L 10/22/21 20:20 51 L 20 182/99 H 10/22/21 20:00 51 L 20 192/94 H 10/22/21 19:50 36.6 C 56 L 20 179/82 H 10/22/21 19:25 36.2 C L 59 L 16 130/80 10/22/21 19:20 62 16 122/78 10/22/21 19:14 36.0 C L 73 16 148/78 H 10/22/21 17:50 36.8 C 54 L 18 177/97 H 10/22/21 14:30 57 L 24 10/22/21 14:00 60 10/22/21 13:48 67 19 10/22/21 13:43 10/22/21 12:51 36.4 C L 66 16 170/103 H Pulse Ox 10/22/21 20:48 96 10/22/21 20:40 94 10/22/21 20:29 10/22/21 20:20 93 10/22/21 20:00 95 10/22/21 19:50 99 10/22/21 19:25 97 10/22/21 19:20 96 10/22/21 19:14 93 10/22/21 17:50 98 10/22/21 14:30 95 10/22/21 14:00 96 10/22/21 13:48 96 10/22/21 13:43 98 10/22/21 12:51 97 PG Care Time/CCT Total # of Minutes Spent Total Time Spent with Patient: Total time spent is greater than 50% in coordination of care (as documented) at patient's floor/unit and/or counseling patient: Coding Level of Care Code 54431 Inpt Consult Level 5 Diagnoses Choledocholithiasis K80.50
[2021-10-22] MEDS ORDERED: OPTIRAY 320 100ml IV ONE (21:47)
[2021-10-22] MEDS: PIPERACILLIN/TAZOBACTAM 3.375 GM in DEXTROSE 5% 100 ML IV SCH (21:59)
--- NOTE | 2021-10-22 22:24 | CT Scan Report ---
CT SCAN OF THE ABDOMEN AND PELVIS WITH IV CONTRAST CLINICAL HISTORY: Right upper quadrant abdominal pain COMPARISON STUDY: Abdominal ultrasound dated 10/22/2021. TECHNIQUE: Following the IV administration of 95 cc of Optiray 320, CT scan of the abdomen and pelvi s is performed from the lung bases to the proximal femora. Images are reviewed in the axial, sagittal , and coronal planes. IV contrast was administered without complication. A small amount of oral contr ast was utilized. A dose lowering technique was utilized adhering to the principles of ALARA. CT DOSE: 785.37 mGy.cm FINDINGS: Lung bases: The heart is top normal in size and without pericardial effusion. The coronary arteries a re calcified. There is a tiny hiatal hernia. The lung bases are clear noting bibasilar scarring/atele ctasis. Liver: The contrast-enhanced liver is normal in size, contour, and attenuation. There is no intrahepa tic biliary ductal dilatation. The hepatic veins and portal veins are patent. Pneumobilia suggests pa tency of the common bile duct stent. Gallbladder: Numerous calcified gallstones are seen in the region of the gallbladder neck on image #1 31. The gallbladder is distended. The gallbladder wall is thickened and hyperemic with surrounding in flammation. The appearance is typical for acute cholecystitis. A common bile duct stent is in place. Spleen: Normal in size and attenuation. Pancreas: Unremarkable. Adrenal glands: Unremarkable. Kidneys: The contrast enhanced kidneys are normal in size and without hydronephrosis. The kidneys enh ance symmetrically. There is a 3.7 x 3.0 x 2.2 cm heterogeneously enhancing mass lesion arising from the interpolar right kidney as seen on image #166. No additional enhancing cortical mass lesion is id entified in either kidney. Renal sinus cysts are seen bilaterally, left greater than right. A 2.1 cm cortical cyst is seen in the right upper pole. Additional subcentimeter cortical hypodensities also l ikely represent cysts but are too small for definitive characterization. Bilateral nonobstructing heidi al calculi measure up to 6 mm. Abdominal vasculature: The abdominal aorta is normal in course and caliber noting mild atheroscleroti c calcification. Bowel: There are scattered colonic diverticula without CT evidence of acute diverticulitis. No bowel obstruction is identified. [id number] fecal retention is seen throughout the colon. The appendi x is well-visualized and normal. Peritoneum: There is no intraperitoneal free air or abdominal ascites. There is a small fat-containin g umbilical hernia. Lymphadenopathy: None. Pelvic viscera: The the prostate gland is enlarged and heterogeneous noting median lobe hypertrophy. The bladder wall is thickened and trabeculated indicating chronic outlet obstruction. Skeletal structures: There is mild lumbosacral spondylosis, greatest at L5-S1. No lytic or blastic le sions are seen. IMPRESSION: 1. Cholelithiasis with evidence of acute cholecystitis. 2. A common bile duct stent is in place. There is no intrahepatic biliary duct dilatation and pneumob leroy suggests patency of the stent. 3. A 3.7 cm exophytic mass arises from the interpolar right kidney. This should be considered renal c ell carcinoma until proven otherwise. Follow-up with urology is recommended. 4. There is no evidence of metastatic disease in the abdomen or pelvis. 5. Bilateral nephrolithiasis. 6. Prostatomegaly with evidence of chronic bladder outlet obstruction. 7. Additional findings as above. ACT 112: Negative or not required by law. Electronically signed by: Noble Frost M.D. 10/22/2021 10:22 PM
--- NOTE | 2021-10-23 05:33 | Surgery Progress Note ---
Date of Service October 23, 2021 Assessment & Plan (1) Choledocholithiasis: Plan: Due to the patient's finding of choledocholithiasis a general surgery consultation has been requested. We recommend proceeding as follows: Continue analgesics Continue antiemetics Check a.m. labs when available Continue IV fluids for hydration Continue antibiotics in the form of Zosyn Continue n.p.o. status Patient is tentatively on the schedule for cholecystectomy today Additional recommendations will be forthcoming based on operative findings and his postoperative course as it unfolds Admission and Anticipated Discharge Date Admission Date: October 22, 2021 Supervising Physician Co-Signing Physician Notes I personally saw and evaluated the patient with Александр Langston PA-C and agree with the assessment and plan. 60-year-old male with acute cholecystitis and choledocholithiasis status post ERCP yesterday ERCP notes and images reviewed by me We will proceed with laparoscopic cholecystectomy, possible open, possible intraoperative cholangiogram Consent obtained, risks discussed including bleeding, infection, bile leak, ductal injury Subjective Patient reports an uneventful night. He specifically denies any worsening abdominal pain. He denies any nausea vomiting. Bowel movement since his procedure. Physical Exam Gastrointestinal (Abdomen): Abdomen is soft, nontender, and nondistended Results & Data ([facility]) Vital Signs (Past 12 Hours) Vital Signs Temp Pulse Pulse Pulse Resp BP Pulse Ox 10/23/21 04:00 36.5 C 60 18 142/80 H 93 10/22/21 23:30 64 10/22/21 23:00 36.5 C 59 L 18 164/85 H 94 10/22/21 21:32 84 20 191/93 H 99 10/22/21 20:48 54 L 20 190/92 H 96 10/22/21 20:40 36.3 C L 52 L 18 177/95 H 94 10/22/21 20:29 52 L 10/22/21 20:20 51 L 20 182/99 H 93 10/22/21 20:00 51 L 20 192/94 H 95 10/22/21 19:50 36.6 C 56 L 20 179/82 H 99 10/22/21 19:25 36.2 C L 59 L 16 130/80 97 10/22/21 19:20 62 16 122/78 96 10/22/21 19:14 36.0 C L 73 16 148/78 H 93 10/22/21 17:50 36.8 C 54 L 18 177/97 H 98 PG Care Time/CCT Total # of Minutes Spent Total Time Spent with Patient: Total time spent is greater than 50% in coordination of care (as documented) at patient's floor/unit and/or counseling patient: Coding Level of Care Code 44976 Subseq Hosp Care Lvl 1 Diagnoses Choledocholithiasis K80.50
[2021-10-23] MEDS: D5W AND NSS 1,000 ML IV SCH ×2 (05:41→12:20)
[2021-10-23] MEDS: PIPERACILLIN/TAZOBACTAM 3.375 GM in DEXTROSE 5% 100 ML IV SCH ×3 (05:41→21:29)
[2021-10-23 06:17] LABS: Hemoglobin 15.4 g/dL (14.0-18.0); Immature Granulocytes # (auto) 0.02 K/uL (0.00-0.02); Immature Granulocytes % (auto) 0.3 %; Lymphocytes # (auto) 0.87 K/uL (1.2-3.4); Lymphocytes % (auto) 11.4 %; Mean Corpuscular Hemoglobin 30.1 pg (25-34); Mean Corpuscular Volume 87.9 fL (80-100); Mean Platelet Volume 10.1 fL (7.4-10.4); Monocytes # (auto) 0.68 K/uL (0.11-0.59); Monocytes % (auto) 8.9 %; Neutrophils # (auto) 6.08 K/uL (1.4-6.5); Neutrophils % (auto) 79.4 %; Platelet Count 252 K/uL (130-400); RDW Coefficient of Variation 12.8 % (11.5-14.5); RDW Standard Deviation 41.2 fL (36.4-46.3); Red Blood Count 5.12 M/uL (4.7-6.1); White Blood Count 7.65 K/uL (4.8-10.8)
[2021-10-23 06:20] LABS: Mean Corpuscular Hgb Conc 34.2 g/dL (32-36)
[2021-10-23] MEDS: ATORVASTATIN 20 MG TAB PO SCH (07:23)
[2021-10-23] MEDS: ATENOLOL 50 MG TABLET PO SCH (07:23)
[2021-10-23] MEDS: PANTOprazole 40 MG TAB PO SCH (07:24)
[2021-10-23 07:48] LABS: Albumin Globulin Ratio 1.6 (0.9-2); Albumin Level 3.6 gm/dl (3.4-5.0); BUN Creatinine Ratio 12.8 (10-20); Bilirubin,Total 1.9 mg/dl (0.2-1.0); Calcium 8.5 mg/dl (8.5-10.1); Creatinine Clr Calc Pharmacy 103.4 ml/min; Est GFR (African American) 101.7 ml/min; Est GFR (Non-African American) 87.8 ml/min; Globulin 2.3 gm/dl (2.5-4.0); Potassium 3.9 mmol/L (3.5-5.1); Total Protein 5.9 gm/dl (6.0-8.3)
[2021-10-23 08:02] LABS: Creatinine Clr Calc Pharmacy 101.3 ml/min; Est GFR (African American) 99.2 ml/min; Est GFR (Non-African American) 85.6 ml/min
--- NOTE | 2021-10-23 08:05 | Anesthesiology Consultation ---
Date of Service October 23, 2021 Assessment & Plan ASA ASA2 Proposed Anesthesia Anesthesia Type: General Risk / Benefits Reviewed With: PT / POA / Parent / Guardian, Accepts Plan and Informed Consent Obtained History Surgery Operation Date: 10/22/21 17:55 Proposed Procedures p Endoscopic Retrograde Cholangiopancreato - Kylah Mata DO Operation Date: 10/23/21 12:30 Proposed Procedures p Laparoscopic Cholecystectomy, Possible Open, Possible Cholangiogram(Not Applicable) - Dinesh Orantes DO Height/Weight Height: 6 ft Weight: 102.3 kg Allergies Allergy/AdvReac Type Severity Reaction Status Date / Time No Known Allergies Allergy Unverified 03/29/14 14:56 Medications Home Medications Medication Instructions Recorded Confirmed Last Taken atenolol 50 mg tablet 50 mg PO DAILY 10/22/21 10/22/21 Unknown atorvastatin 20 mg tablet 20 mg PO DAILY 10/22/21 10/22/21 Unknown omeprazole 20 mg capsule,delayed 20 mg PO DAILY 10/22/21 10/22/21 Unknown release Active Medications Generic Name Dose Route Start Last Admin Trade Name Freq PRN Reason Stop Dose Admin Atenolol 50 mg 10/23/21 09:00 10/23/21 07:23 Atenolol 50 Mg Tablet PO 11/22/21 08:59 50 mg DAILY [place] Administration Atorvastatin Calcium 20 mg 10/23/21 09:00 10/23/21 07:23 Atorvastatin 20 Mg Tab PO 11/22/21 08:59 20 mg DAILY [place] Administration Dextrose/Sodium Chloride 1,000 mls @ 100 mls/hr 10/22/21 17:30 10/23/21 05:41 D5w And Nss IV 11/21/21 17:29 100 mls/hr .Q10H [place] Administration Piperacillin Sod/Tazobactam 115 mls @ 28.75 mls/hr 10/22/21 22:00 10/23/21 05:41 Sod 3.375 gm/ Dextrose IV 11/01/21 21:59 28.8 mls/hr Q8H [place] Administration Protocol Morphine Sulfate 4 mg 10/22/21 13:09 10/22/21 13:38 Morphine Sulfate 4 Mg/Ml 1 Ml Carp\\Vial IV 11/05/21 13:08 4 mg Q15M PRN Administration Pain Pantoprazole Sodium 40 mg 10/23/21 09:00 10/23/21 07:24 Pantoprazole 40 Mg Tab PO 11/22/21 08:59 Not Given DAILY [place] NPO Date Last Intake of Fluids: 10/22/21 Time Last Intake of Fluids: 12:00 Last Intake of Fluids Comment: "sips of water" Date Last Intake of Solids: 10/21/21 Time Last Intake of Solids: 10:00 Past Medical History Medical History High cholesterol Hypertension Exercise / Class Metabolic Activity II 4-5 Yardwork/Stairs/Walk up hill Past Anesthesia History No Hx of Anesthesia Complications and No Family Hx of Anesthesia Complications History of PONV No Hx of PONV and No Hx of Motion Sickness Social History Smoking Status: Never smoker Hx Alcohol Use: No Hx Substance Use: No substance use type: does not use Review of Systems denies fever/cough/ colds/ chest pain/ SOB/ MICHAEL denies MICHAEL Physical Exam Vital Signs Last Vital Signs Temp 36.5 C 10/23/21 07:27 Pulse 59 L 10/23/21 07:38 Resp 18 10/23/21 07:27 BP 130/74 10/23/21 07:27 Pulse Ox 94 10/23/21 07:27 ENMT Mouth: no TMJ abnormality and no dentition abnormality Thyromental Distance: > or= 3.5 Finger Breadths Mallampati Class: II Neck neck extension not limited Respiratory normal respiratory effort; no respiratory distress Auscultation: lungs clear to auscultation bilaterally Cardiovascular Rate/Rhythm: regular rate and regular rhythm Neurologic moves all extremities Psychiatric Orientation: alert and oriented x 3 Testing Laboratory Results 10/23/21 06:04 10/23/21 06:04 PT 10.1 Seconds (9.0-12.0) 10/22/21 Unknown INR 0.9 (0.9-1.1) 10/22/21 Unknown APTT 24.2 Seconds (21.0-31.0) 10/22/21 Unknown Urine Color Dark Yellow 10/22/21 Unknown Urine Appearance Clear (Clear) 10/22/21 Unknown Urine pH 5.0 (4.5-7.5) 10/22/21 Unknown Ur Specific [place] 1.026 (1.000-1.030) 10/22/21 Unknown Urine Protein Negative (Negative) 10/22/21 Unknown Urine Glucose (UA) Negative (Negative) 10/22/21 Unknown Urine Ketones 1+ (Negative) H 10/22/21 Unknown Urine Nitrite Positive (Negative) A 10/22/21 Unknown Ur Leukocyte Esterase Negative (Negative) 10/22/21 Unknown Urine WBC (Auto) 1-5 /hpf (0-5) 10/22/21 Unknown Urine RBC (Auto) 5-10 /hpf (0-4) H 10/22/21 Unknown U Hyaline Cast (Auto) 1-5 /lpf (0-5) 10/22/21 Unknown U Epithel Cells (Auto) 0-5 /lpf (0-5) 10/22/21 Unknown Urine Bacteria (Auto) Negative (Negative) 10/22/21 Unknown
--- NOTE | 2021-10-23 08:11 | Hospitalist Progress Note ---
Date of Service October 23, 2021 Assessment & Plan (1) Choledocholithiasis with acute cholecystitis: (2) Right kidney mass: (3) HTN (hypertension): (4) HLD (hyperlipidemia): (5) MICHAEL (obstructive sleep apnea): Plan: Pt is a 60 y/o M with hx of HTN, HLD, MICHAEL (not on CPAP), GERD admitted for elevated LFTs with Gallstones Acute cholecystitis with choledocholithiasis - GB US and CT A/P reviewed- CT details as below - s/p ERCP 10/22 by GI with biliary sphincterotomy, gallstone extraction and biliary stent - S/p lap edie today by surgery- further management per surgical team - continue IVF and zosyn - LFTs improving post ERCP - Recommendations per GI include Avoid nonsteroidals for 1 week Continue antibiotics for total of 10 days Repeat ERCP for stent removal in [address] A/P 1. Cholelithiasis with evidence of acute cholecystitis. 2. A common bile duct stent is in place. There is no intrahepatic biliary duct dilatation and pneumobilia suggests patency of the stent. 3. A 3.7 cm exophytic mass arises from the interpolar right kidney. This should be considered renal cell carcinoma until proven otherwise. Follow-up with urology is recommended. 4. There is no evidence of metastatic disease in the abdomen or pelvis. 5. Bilateral nephrolithiasis. 6. Prostatomegaly with evidence of chronic bladder outlet obstruction. Right renal mass- suspicious for RCC- 3.7 cm exophytic mass detailed as above - seen in CT- seen by uro for further management HTN- on tenormin, BP stable HLD- on statin GERD- on PPI Dispo- lap edie today DVT prophylaxis- resume when okay per surgical team Admission and Anticipated Discharge Date Admission Date: October 22, 2021 Subjective Seen and examined at bedside. States surgery went fine. Minimal pain during my encounter. Tolerated sips. No nausea or vomiting. No gas yet. Physical Exam Physical Exam: General: Lying comfortably in bed, not in distress, on NC HEENT: EOMI, [place]YS[place], MMM Chest: Clear breath sounds bilaterally, no wheezes or crackles CVS: Regular rate and rhythm, normal heart sounds, no murmur Abdomen: Soft, incision sites clean dry intact, hypoactive bowel sounds Neuro: Awake, alert, oriented, conversing well, non focal Extremities: No cyanosis, clubbing or edema Results & Data Results & Data ([facility]) Vital Signs (Past 12 Hours) Vital Signs Temp Pulse Pulse Resp BP Pulse Ox 10/23/21 07:38 59 L 10/23/21 07:27 36.5 C 63 18 130/74 94 10/23/21 04:00 36.5 C 60 18 142/80 H 93 10/22/21 23:30 64 10/22/21 23:00 36.5 C 59 L 18 164/85 H 94 10/22/21 21:32 84 20 191/93 H 99 10/22/21 20:48 54 L 20 190/92 H 96 10/22/21 20:40 36.3 C L 52 L 18 177/95 H 94 10/22/21 20:29 52 L 10/22/21 20:20 51 L 20 182/99 H 93 Laboratory Results Short CBC 10/23/21 Range/Units 06:04 WBC 7.65 (4.8-10.8) K/uL Hgb 15.4 (14.0-18.0) g/dL Hct 45.0 (42-52) % Plt Count 252 (130-400) K/uL BMP 10/23/21 10/23/21 06:04 06:04 Sodium 136 Potassium 3.9 Chloride 108 H Carbon Dioxide 22 BUN 12 Creatinine 0.94 0.96 Glucose 130 H Calcium 8.5 Liver Function 10/23/21 Range/Units 06:04 Total Bilirubin 1.9 H D (0.2-1.0) mg/dl AST 151 H (13-39) U/L ALT 605 H (7-52) U/L Alkaline Phosphatase 200 H (34-104) U/L Albumin 3.6 (3.4-5.0) gm/dl Urine 10/22/21 Range/Units Unknown Urine Color Dark Yellow Urine Appearance Clear (Clear) Urine pH 5.0 (4.5-7.5) Ur Specific [place] 1.026 (1.000-1.030) Urine Protein Negative (Negative) Urine Glucose (UA) Negative (Negative) Medications Administered Current Inpatient Medications Atenolol (Atenolol 50 Mg Tablet) 50 mg PO DAILY [place] Stop: 11/22/21 08:59 Last Admin: 10/23/21 07:23 Dose: 50 mg Documented by: Atorvastatin Calcium (Atorvastatin 20 Mg Tab) 20 mg PO DAILY [facility] Stop: 11/22/21 08:59 Last Admin: 10/23/21 07:23 Dose: 20 mg Documented by: Atropine Sulfate (Atropine Sulfate 0.1 Mg/Ml 10ml Syr) 0.5 mg IV Q1M PRN PRN Reason: PACU Use-HR<40 &/or Bradycardi Stop: 10/23/21 16:37 Ephedrine Sulfate (Ephedrine Sulfate 50 Mg/Ml Amp) 5 mg IV Q5M PRN PRN Reason: PACU Use Only-SBP<90 mmHg Stop: 10/23/21 16:37 Fentanyl Citrate (Fentanyl Citrate 100 Mcg/2 Ml Vial) 50 mcg IV Q5M PRN PRN Reason: PACU Use Only-Pain Stop: 10/23/21 16:37 Last Admin: 10/23/21 11:04 Dose: 50 mcg Documented by: Hydromorphone HCl (Hydromorphone Inj 2 Mg/Ml Syr/Vial) 0.5 mg IV Q5M PRN PRN Reason: PACU Use Only-Pain Stop: 10/23/21 16:37 Last Admin: 10/23/21 11:33 Dose: 0.5 mg Documented by: Dextrose/Sodium Chloride (D5w And Nss) 1,000 mls @ 100 mls/hr IV .Q10H [facility] Stop: 11/21/21 17:29 Last Admin: 10/23/21 12:20 Dose: 100 mls/hr Documented by: Piperacillin Sod/Tazobactam (Sod 3.375 gm/ Dextrose) 115 mls @ 28.75 mls/hr IV Q8H [facility]; Protocol Stop: 11/01/21 21:59 Last Admin: 10/23/21 13:37 Dose: 28.8 mls/hr Documented by: Miscellaneous Information (Piperacill/Tazobac Consult Active) 1 ea N/A UD PRN PRN Reason: Consult Stop: 11/21/21 19:46 Morphine Sulfate (Morphine Sulfate 4 Mg/Ml 1 Ml Carp\Vial) 4 mg IV Q15M PRN PRN Reason: Pain Stop: 11/05/21 13:08 Last Admin: 10/22/21 13:38 Dose: 4 mg Documented by: Ondansetron HCl (Ondansetron Inj 2 Mg/Ml 2 Ml Vial) 4 mg IV Q6H PRN PRN Reason: Nausea Stop: 11/21/21 19:46 Ondansetron HCl (Ondansetron Inj 2 Mg/Ml 2 Ml Vial) 4 mg IV ONCE PRN PRN Reason: PACU Use Only-Nausea/Vomiting Stop: 10/23/21 16:37 Oxycodone HCl (Oxycodone Hcl Ir 5 Mg Tab (Immediate Release)) 5 mg PO Q4 PRN PRN Reason: Pain Stop: 11/06/21 12:11 Pantoprazole Sodium (Pantoprazole 40 Mg Tab) 40 mg PO DAILY [place] Stop: 11/22/21 08:59 Last Admin: 10/23/21 07:24 Dose: Not Given Documented by:
[2021-10-23] MEDS ORDERED: fentaNYL citrate 100 MCG/2 ML VIAL ONE ×2 (08:21→08:47)
[2021-10-23] MEDS ORDERED: BUPIVACAINE/EPINEPHRINE 0.25% 1:200,000 30 ML VIAL ONE (08:27)
[2021-10-23] MEDS ORDERED: ONDANSETRON INJ 2 MG/ML 2 ML VIAL IV PRN (08:37)
[2021-10-23] MEDS ORDERED: ATROPINE SULFATE 0.1 MG/ML 10ML SYR IV PRN (08:37)
[2021-10-23] MEDS ORDERED: ePHEDrine sulfate 50 MG/ML AMP IV PRN (08:37)
[2021-10-23] MEDS ORDERED: NEOSTIGMINE METHYLSULFATE 1 MG/ML 10ML VIAL ONE (08:44)
[2021-10-23] MEDS ORDERED: DEXAMETHASONE SOD INJ 4 MG/ML VIAL ONE (08:44)
[2021-10-23] MEDS ORDERED: LIDOCAINE 2% 2 ML VIAL/AMP(20MG/ML) INFIL ONE (08:44)
[2021-10-23] MEDS ORDERED: ONDANSETRON INJ 2 MG/ML 2 ML VIAL ONE (08:44)
[2021-10-23] MEDS ORDERED: ROCURONIUM BROMIDE 10 MG/ML 5 ML VIAL IV ONE ×2 (08:44→10:31)
[2021-10-23] MEDS ORDERED: PROPOFOL IV EMULSION 10 MG/ML 20 ML VIAL IV ONE (08:44)
[2021-10-23] MEDS ORDERED: GLYCOPYRROLATE 0.2 MG/ML VIAL ONE ×2 (08:44→10:31)
[2021-10-23] MEDS ORDERED: KETOROLAC 30 MG/ML VIAL ONE (08:47)
[2021-10-23] MEDS ORDERED: HYDROmorphone INJ 1 MG/ML SYRINGE ONE (09:14)
[2021-10-23] MEDS ORDERED: FLOSEAL HEMOSTATIC MATRIX 10ML TOP ONE (10:14)
--- NOTE | 2021-10-23 10:40 | Urology Consultation ---
Date of Consultation October 23, 2021 Assessment & Plan (1) Right kidney mass: Patient with incidentally found 3.7 centimeters enhancing renal mass suspicious for malignancy. Patient is actively undergoing management of a severe episode of acute cholecystitis requiring intervention. Had undergone ERCP with the GI team. Patient postop from Cholecystectomy after ERCP for choledocholithiasis Is still recovering from the intervention. Is following closely with GI, general surgery, and the hospitalist team. Long counseling session with patient and family. Discussed concern for Renal Mass and Renal Cell Carcinoma. Discussed incidental findings on imaging and diagnosis of renal mass Discussed renal cell carcinomas and suspicion related to enhancing masses. Discussed management of RCC and lack of chemotherapy or radiation options. Reviewed concerns related to renal cell carcinomas and briefly discussed options for intervention including surgery, ablation, and conservative management as well as targeted therapies. Discussed need for recovery from acute episode. Discussed different options for approach for management of disease. Discussed further work-up and need for assessment. Likely will need a period of recovery after the significant upper right quadrant surgical intervention. Due to location of mass on the right in the area of the major surgery will need to allow for adequate time for healing and recovery of the liver and retroperitoneum. We will need repeat imaging. Discussed possible concerns related to malignancy and advancement of disease. Discussed other concerns and issues. All questions were answered. Will need to be set up with follow-up in the next few weeks to finalize plans for management and assessment and diagnosis. Reviewed patient's bladder outlet issues especially in light of the major acute illness. We will continue to monitor. We will work through some of these issues moving forward. Patient complicated medical and surgical history as well as the information from the major acute episode overall reviewed and summarized as stated above. Patient's family history was reviewed and no major family history of malignancy. Discussed patient's urinary symptoms and bother. Patient's imaging was all reviewed interpreted by myself. Patient's labs and vitals were all reviewed including most recent labs after the surgical intervention. Also discussed likely need for further management and intervention History of Present Illness Attending Physician: Jcarlos Mukherjee MD History of Present Illness New consultation for patient with incidental right enhancing renal mass 3.7 cm. Patient had presented with significant right upper quadrant discomfort pain and found to have acute cholecystitis. Patient developed sudden onset of pain radiating into back in waves comes and goes. Patient is being actively managed by the general surgery, GI and hospitalist teams. Required interventions Discussed and reviewed patient's family history and has no major history of renal cancer, but does have family history of malignancy. Had a Grandfather with bladder cancer. Also, discussed patient's medical surgery history especially related to any history of urinary issues . Patient does also appear to have some bladder outlet obstruction issues with incomplete emptying. Due to the acute illness as well as multiple issues did discuss different options for management. Patient is admitted and is undergoing active management of his significant ep isode of acute cholecystitis. Patient postop from Cholecystectomy after ERCP for choledocholithiasis Allergies Allergy/AdvReac Type Severity Reaction Status Date / Time No Known Allergies Allergy Unverified 03/29/14 14:56 Home Medications Medication Instructions Recorded Confirmed Type atenolol 50 mg tablet 50 mg PO DAILY 10/22/21 10/22/21 History atorvastatin 20 mg tablet 20 mg PO DAILY 10/22/21 10/22/21 History omeprazole 20 mg capsule,delayed 20 mg PO DAILY 10/22/21 10/22/21 History release Patient History Medical History High cholesterol Hypertension Social History Smoking Status: Never smoker Hx Alcohol Use: No Hx Substance Use: No Preferred Language: [place] Communication Ability: Effective Laminate Floor Installer Required: No Beliefs That Will Affect Care: None Current Living Situation: Alone Feels Safe at Home: Yes Safety Concerns: Feels Safe At This Time Assistive Devices: Glasses Review of Systems Review of Systems: All systems reviewed & are unremarkable except as noted in HPI & below Physical Exam Physical Exam: General: Alert in no acute distress. Postop day 1 from . HEENT: Normocephalic Atraumatic. Inspection normal. Cranial Nerves 2-12 Grossly intact. Nares are clear. Neck is supple. Normal inspection of face. Normal inspection of neck. Neurologic: No deficits on inspection. Baseline for motor function and sensory. Psychologic: Normal affect. Respiratory: Nonlabored. No use of accessory muscles. No tachypnea or dyspnea. Cardiovascular: No tachycardia Skin: [place] and Dry. No rashes or visible lesions. Extremities: Moving without issues. No motor deficits on inspection Lymphatics: No edema Abdomen: Moderately distended. No rebound or guarding. Results & Data ([facility]) Vital Signs (Past 12 Hours) Vital Signs Temp Pulse Pulse Resp BP Pulse Ox 10/23/21 07:38 59 L 10/23/21 07:27 36.5 C 63 18 130/74 94 10/23/21 04:00 36.5 C 60 18 142/80 H 93 10/22/21 23:30 64 10/22/21 23:00 36.5 C 59 L 18 164/85 H 94 PG Care Time/CCT Total # of Minutes Spent Total Time Spent with Patient: Total time spent is greater than 50% in coordination of care (as documented) at patient's floor/unit and/or counseling patient: Coding Level of Care Code 21376 Inpt Consult Level 5 Diagnoses Right kidney mass N28.89
[2021-10-23] MEDS: fentaNYL citrate 100 MCG/2 ML VIAL IV PRN ×2 (10:59→11:04)
--- NOTE | 2021-10-23 11:00 | Post Operative Brief Note ---
PG Immediate Post Op with CF Date of Surgery October 23, 2021 Pre & Post Diagnosis Operation Date: 10/23/21 12:30 Pre-Op Diagnosis: (1) Choledocholithiasis, acute cholecystitis Post-Op Diagnosis: (1) Choledocholithiasis, acute cholecystitis I identified the patient and participated in the time-out.: Yes Procedure Operation Date: 10/23/21 12:30 Actual Procedures p Laparoscopic Cholecystectomy(Not Applicable) - Dinesh Orantes DO Surgeon Dinesh Orantes DO [employer]inner none Estimated Blood Loss 25 Findings See Below Acutely inflamed edematous gallbladder with dense omental adhesions consistent with acute cholecystitis Specimens Specimen Description: a. gallbladder Anesthesia Type General Complications none Disposition Disposition: Recovery Room
--- NOTE | 2021-10-23 11:04 | Operative Report ---
PG Post Operative Report Pre & Post Diagnosis Operation Date: 10/23/21 12:30 Pre-Op Diagnosis: (1) Choledocholithiasis, acute cholecystitis Post-Op Diagnosis: (1) Choledocholithiasis, acute cholecystitis I identified the patient and participated in the time-out.: Yes Procedure Operation Date: 10/23/21 12:30 Actual Procedures p Laparoscopic Cholecystectomy(Not Applicable) - Dinesh Orantes DO Surgeon Dinesh Orantes DO Information Technology Intern none Estimated Blood Loss 25 Findings See Below Acutely inflamed edematous gallbladder with dense omental adhesions consistent with acute cholecystitis Fluids see anesthesia record Specimens Gallbladder to pathology Drains None Anesthesia Type General Complications none Disposition Disposition: Recovery Room Indications 60-year-old male status post ERCP for choledocholithiasis and ultrasound findings consistent with acute cholecystitis Description of Procedure The patient was brought to the operating room and placed in the supine position with both arms extended. At this time she underwent general endotracheal ane sthesia without any problems. She was given appropriate pre-operative antibiotics. Her abdomen prepped and draped in the usual sterile fashion. A timeout was called, the procedure was verified as Laparoscopic cholecystectomy, possible open, possible intra-operative cholangiogram. Surgical, nursing and anesthesia teams agreed and the procedure was begun. After injection of 0.25% Marcaine with epinephrine, a supraumbilical vertical incision was made and carried down to the fascia using S-retractors. The abdominal wall was then elevated with towel clamps and abdomen entered using the Veress needle confirming position using the saline drop test. Pneumoperitoneum was established. 5mm trocar was placed. Laparoscope was introduced. No injury from entry into the abdomen was visualized after inspection of the abdomen. Three further ports were placed under direct visualization. One 11mm in the subxiphoid region and two 5mm in the RUQ. At this time the abdomen was inspected and the gallbladder identified. The gallbladder fundus was grasped and retracted cephalad. There were dense omental adhesions to the gallbladder itself as well as the liver. These were lysed using a combination of sharp and blunt dissection as well as electrocautery. The gallbladder itself appeared thickened edematous and inflamed consistent with acute cholecystitis. The gallbladder infundibulum was then visualized and grasped and retracted laterally. The cystic duct and cystic artery were then identified and skeletonized. The critical view of safety was obtained. They were both then clipped twice proximally and once distally and then divided using scissors. The gallbladder was then taken off of the liver bed using electrocautery and placed in an endocatch bag and removed from the subxiphoid port. The liver bed was then inspected and no bile leak or bleeding was evident. The trocars were then removed under direct visualization and no bleeding was present. The subxiphoid port was then closed using 0-Vicryl using the suture passer. Abdomen was desufflated. The skin was then closed using 4-0 Monocryl in a subcuticular fashion. Sterile dressings were applied. Needle and sponge counts were correct x 2. At this time the patient was awoken from anesthesia and extubated having remained stable throughout the entire case. The patient was then transported to PACU in stable condition. I attest to the content of the Intraoperative Record and any orders documented therein. Any exceptions are noted below.
[2021-10-23] MEDS: HYDROmorphone INJ 2 MG/ML SYR/VIAL IV PRN ×4 (11:18→11:33)
--- NOTE | 2021-10-23 11:48 | Anesthesiology Progress Note ---
Date of Service October 23, 2021 Anesthesia Post Procedure Vital Signs Vital Signs: Temp Pulse Pulse Pulse Resp BP BP 10/23/21 11:35 36.4 C L 63 12 180/90 H 10/23/21 11:25 64 14 190/107 H 10/23/21 11:15 63 17 212/98 H 10/23/21 11:05 60 14 207/102 H 10/23/21 10:55 36.1 C L 63 16 197/98 H 10/23/21 07:38 59 L 10/23/21 07:27 36.5 C 63 18 130/74 10/23/21 04:00 36.5 C 60 18 142/80 H 10/22/21 23:30 64 10/22/21 23:00 36.5 C 59 L 18 164/85 H 10/22/21 21:32 84 20 191/93 H 10/22/21 20:48 54 L 20 190/92 H 10/22/21 20:40 36.3 C L 52 L 18 177/95 H 10/22/21 20:29 52 L 10/22/21 20:20 51 L 20 182/99 H 10/22/21 20:00 51 L 20 192/94 H 10/22/21 19:50 36.6 C 56 L 20 179/82 H 10/22/21 19:25 36.2 C L 59 L 16 130/80 10/22/21 19:20 62 16 122/78 10/22/21 19:14 36.0 C L 73 16 148/78 H 10/22/21 17:50 36.8 C 54 L 18 177/97 H 10/22/21 14:30 57 L 24 10/22/21 14:00 60 10/22/21 13:48 67 19 10/22/21 13:43 10/22/21 12:51 36.4 C L 66 16 170/103 H Pulse Ox 10/23/21 11:35 96 10/23/21 11:25 98 10/23/21 11:15 99 10/23/21 11:05 100 10/23/21 10:55 98 10/23/21 07:38 10/23/21 07:27 94 10/23/21 04:00 93 10/22/21 23:30 10/22/21 23:00 94 10/22/21 21:32 99 10/22/21 20:48 96 10/22/21 20:40 94 10/22/21 20:29 10/22/21 20:20 93 10/22/21 20:00 95 10/22/21 19:50 99 10/22/21 19:25 97 10/22/21 19:20 96 10/22/21 19:14 93 10/22/21 17:50 98 10/22/21 14:30 95 10/22/21 14:00 96 10/22/21 13:48 96 10/22/21 13:43 98 10/22/21 12:51 97 Pain Intensity Bilateral Shoulder: Pain Intensity: 6 Transfer of Care Handoff Completed per policy Notes Mental Status: alert / awake / arousable Patient Amnestic to Procedure: Yes Nausea / Vomiting: adequately controlled Pain: adequately controlled Airway Patency, RR, SpO2: stable & adequate BP & HR: stable & adequate Hydration State: stable & adequate Anesthetic Complications: no major complications apparent
[2021-10-23] MEDS ORDERED: oxyCODONE HCL IR 5 MG TAB (IMMEDIATE RELEASE) PO PRN (12:12)
[2021-10-23] MEDS: D5W AND 1/2NSS 1,000 ML IV SCH (17:04)
[2021-10-24] MEDS: D5W AND 1/2NSS 1,000 ML IV SCH ×2 (01:23→11:29)
--- NOTE | 2021-10-24 05:34 | Surgery Progress Note ---
Date of Service October 24, 2021 Assessment & Plan (1) Choledocholithiasis: Plan: Due to the patient's finding of choledocholithiasis a general surgery consultation has been requested. Patient is status post laparoscopic cholecystectomy on 10/23/2021 (postop day #1) Continue analgesics Continue antiemetics Continue IV fluids for hydration until diet advanced further Continue antibiotics in the form of Zosyn Encourage use of incentive spirometry Increase activity Admission and Anticipated Discharge Date Admission Date: October 22, 2021 Supervising Physician Co-Signing Physician Notes I personally saw and evaluated the patient with Александр Langston PA-C and agree with the assessment and plan. 60-year-old male postoperative day 1 laparoscopic cholecystectomy for acute cholecystitis and choledocholithiasis He seems to be doing well postoperatively He can advance his diet as tolerated Pain control as needed He can be discharged from a surgical standpoint today if he tolerates his diet We will follow while he is in the hospital Subjective Patient is resting comfortably in bed. He notes since surgery he tolerated clear liquids without any nausea or vomiting. He notes minimal abdominal pain this morning. He has not had a bowel movement or passed flatus since surgery. Physical Exam Gastrointestinal (Abdomen): Abdomen is soft, nontender, nondistended. There is minimal pain with palpation. Results & Data ([facility]) Vital Signs (Past 12 Hours) Vital Signs Temp Pulse Pulse Resp BP Pulse Ox Pulse Ox 10/24/21 04:13 36.9 C 60 18 162/82 H 94 10/23/21 23:37 37.1 C 70 18 160/74 H 93 10/23/21 23:17 71 10/23/21 19:47 98 10/23/21 19:45 36.8 C 91 H 20 146/69 H 94 PG Care Time/CCT Total # of Minutes Spent Total Time Spent with Patient: Total time spent is greater than 50% in coordination of care (as documented) at patient's floor/unit and/or counseling patient: Coding Level of Care Code None Diagnoses Choledocholithiasis K80.50
[2021-10-24] MEDS: PIPERACILLIN/TAZOBACTAM 3.375 GM in DEXTROSE 5% 100 ML IV SCH ×3 (05:51→22:01)
[2021-10-24] MEDS ORDERED: hydrALAZINE HCL 20 MG/ML VIAL IV ONE (06:39)
[2021-10-24 07:18] LABS: Basophils # (auto) 0.01 K/uL (0-0.2); Basophils % (auto) 0.1 %; Eosinophils # (auto) 0.03 K/uL (0-0.5); Eosinophils % (auto) 0.3 %; Hematocrit (blood only) 43.1 % (42-52); Hemoglobin 14.6 g/dL (14.0-18.0); Immature Granulocytes # (auto) 0.04 K/uL (0.00-0.02); Immature Granulocytes % (auto) 0.4 %; Lymphocytes # (auto) 2.34 K/uL (1.2-3.4); Lymphocytes % (auto) 21.1 %; Mean Corpuscular Hemoglobin 30.2 pg (25-34); Mean Corpuscular Hgb Conc 33.9 g/dL (32-36); Mean Platelet Volume 10.2 fL (7.4-10.4); Monocytes # (auto) 1.24 K/uL (0.11-0.59); Monocytes % (auto) 11.2 %; Neutrophils # (auto) 7.44 K/uL (1.4-6.5); Neutrophils % (auto) 66.9 %; Platelet Count 241 K/uL (130-400); RDW Coefficient of Variation 13.1 % (11.5-14.5); RDW Standard Deviation 43.3 fL (36.4-46.3); Red Blood Count 4.84 M/uL (4.7-6.1)
[2021-10-24] MEDS ORDERED: hydrALAZINE HCL 20 MG/ML VIAL IV PRN (07:45)
[2021-10-24 07:52] LABS: BUN Creatinine Ratio 11.2 (10-20); Calcium 8.4 mg/dl (8.5-10.1); Creatinine Clr Calc Pharmacy 99.3 ml/min; Est GFR (African American) 96.7 ml/min; Est GFR (Non-African American) 83.5 ml/min; Potassium 3.4 mmol/L (3.5-5.1)
[2021-10-24] MEDS: ATORVASTATIN 20 MG TAB PO SCH (08:52)
[2021-10-24] MEDS: PANTOprazole 40 MG TAB PO SCH (08:52)
[2021-10-24] MEDS: ATENOLOL 50 MG TABLET PO SCH (08:52)
[2021-10-24] MEDS ORDERED: amLODIPine BESYLATE 5 MG TAB PO SCH (09:00)
[2021-10-24] MEDS ORDERED: POTASSIUM CHLORIDE CRTAB 20 MEQ TABCR PO STA (11:01)
--- NOTE | 2021-10-24 11:08 | Hospitalist Progress Note ---
Date of Service October 24, 2021 Assessment & Plan (1) Choledocholithiasis with acute cholecystitis: (2) Right kidney mass: (3) HTN (hypertension): (4) HLD (hyperlipidemia): (5) MICHAEL (obstructive sleep apnea): Plan: Pt is a 60 y/o M with hx of HTN, HLD, MICHAEL (not on CPAP), GERD admitted for elevated LFTs with Gallstones Acute cholecystitis with choledocholithiasis - GB US and CT A/P reviewed- CT details as below - s/p ERCP 10/22 by GI with biliary sphincterotomy, gallstone extraction and biliary stent - S/p lap edie 10/23 by surgery- further management per surgical team - continue IVF and zosyn- DC IVF if adequate oral intake - LFTs improving post ERCP - Recommendations per GI include Avoid nonsteroidals for 1 week Continue antibiotics for total of 10 days Repeat ERCP for stent removal in [address] A/P 1. Cholelithiasis with evidence of acute cholecystitis. 2. A common bile duct stent is in place. There is no intrahepatic biliary duct dilatation and pneumobilia suggests patency of the stent. 3. A 3.7 cm exophytic mass arises from the interpolar right kidney. This should be considered renal cell carcinoma until proven otherwise. Follow-up with urology is recommended. 4. There is no evidence of metastatic disease in the abdomen or pelvis. 5. Bilateral nephrolithiasis. 6. Prostatomegaly with evidence of chronic bladder outlet obstruction. Right renal mass- suspicious for RCC- 3.7 cm exophytic mass detailed as above - seen in CT- seen by uro for further management- needs OP follow up once he recovers from this acute episode Hypokalemia- repleted, recheck in am HTN- on tenormin, BP elevated- norvasc added- also has HLZ prn. HLD- on statin GERD- on PPI Dispo- Anticipate discharge today or tomorrow- needs to tolerate solid food without issues; awaiting better BP control DVT prophylaxis- sc lovenox Admission and Anticipated Discharge Date Admission Date: October 22, 2021 Subjective He is concerned about the high blood pressures. States his BP is controlled with tenormin. Pain is controlled. Tolerating clears well and advanced to low fat diet for lunch. Passing gas but no bowel movement yet. No other issues. Physical Exam Physical Exam: General: Lying comfortably in bed, not in distress, on NC HEENT: EOMI, [place], MMM Chest: Clear breath sounds bilaterally, no wheezes or crackles CVS: Regular rate and rhythm, normal heart sounds, no murmur Abdomen: Soft, incision sites clean dry intact, bowel sounds present Neuro: Awake, alert, oriented, conversing well, non focal Extremities: No cyanosis, clubbing or edema Results & Data Results & Data ([facility]) Vital Signs (Past 12 Hours) Vital Signs Temp Pulse Pulse Resp BP Pulse Ox 10/24/21 08:51 68 180/89 H 10/24/21 07:56 53 L 10/24/21 06:47 36.6 C 58 L 18 180/90 H 94 10/24/21 06:39 60 180/90 H 10/24/21 04:13 36.9 C 60 18 162/82 H 94 10/23/21 23:37 37.1 C 70 18 160/74 H 93 10/23/21 23:17 71 Laboratory Results Short CBC 10/24/21 Range/Units 06:38 WBC 11.10 H (4.8-10.8) K/uL Hgb 14.6 (14.0-18.0) g/dL Hct 43.1 (42-52) % Plt Count 241 (130-400) K/uL BMP 10/24/21 06:38 Sodium 139 Potassium 3.4 L Chloride 109 H Carbon Dioxide 24 BUN 11 Creatinine 0.98 Glucose 103 H Calcium 8.4 L Medications Administered Current Inpatient Medications Amlodipine Besylate (Amlodipine Besylate 5 Mg Tab) 5 mg PO QAM [place] Stop: 11/23/21 08:59 Last Admin: 10/24/21 08:52 Dose: 5 mg Documented by: Atenolol (Atenolol 50 Mg Tablet) 50 mg PO DAILY [place] Stop: 11/22/21 08:59 Last Admin: 10/24/21 08:52 Dose: 50 mg Documented by: Atorvastatin Calcium (Atorvastatin 20 Mg Tab) 20 mg PO DAILY [place] Stop: 11/22/21 08:59 Last Admin: 10/24/21 08:52 Dose: 20 mg Documented by: Hydralazine HCl (Hydralazine Hcl 20 Mg/Ml Vial) 5 mg IV Q4H PRN PRN Reason: SBP>160 or DBP>100 Stop: 11/23/21 07:44 Piperacillin Sod/Tazobactam (Sod 3.375 gm/ Dextrose) 115 mls @ 28.75 mls/hr IV Q8H [place]; Protocol Stop: 11/01/21 21:59 Last Infusion: 10/24/21 09:55 Dose: Infused Documented by: Dextrose/Sodium Chloride (D5w And 1/2nss) 1,000 mls @ 100 mls/hr IV .Q10H [place] Stop: 11/22/21 16:44 Last Admin: 10/24/21 01:23 Dose: 100 mls/hr Documented by: Miscellaneous Information (Piperacill/Tazobac Consult Active) 1 ea N/A UD PRN PRN Reason: Consult Stop: 11/21/21 19:46 Morphine Sulfate (Morphine Sulfate 4 Mg/Ml 1 Ml Carp\Vial) 4 mg IV Q15M PRN PRN Reason: Pain Stop: 11/05/21 13:08 Last Admin: 10/22/21 13:38 Dose: 4 mg Documented by: Ondansetron HCl (Ondansetron Inj 2 Mg/Ml 2 Ml Vial) 4 mg IV Q6H PRN PRN Reason: Nausea Stop: 11/21/21 19:46 Oxycodone HCl (Oxycodone Hcl Ir 5 Mg Tab (Immediate Release)) 5 mg PO Q4 PRN PRN Reason: Pain Stop: 11/06/21 12:11 Pantoprazole Sodium (Pantoprazole 40 Mg Tab) 40 mg PO DAILY [place] Stop: 11/22/21 08:59 Last Admin: 10/24/21 08:52 Dose: 40 mg Documented by: Potassium Chloride (Potassium Chloride Crtab 20 Meq Tabcr) 40 meq PO NOW STA Stop: 10/24/21 11:02
[2021-10-24] MEDS: ENOXAPARIN INJ 40 MG/0.4 ML SYR SQ SCH (13:07)
[2021-10-24] MEDS: amLODIPine BESYLATE 5 MG TAB PO SCH (20:27)
[2021-10-25] MEDS: PIPERACILLIN/TAZOBACTAM 3.375 GM in DEXTROSE 5% 100 ML IV SCH (05:49)
[2021-10-25 07:50] LABS: Albumin Globulin Ratio 1.5 (0.9-2); Albumin Level 3.8 gm/dl (3.4-5.0); BUN Creatinine Ratio 14.6 (10-20); Bilirubin,Total 1.3 mg/dl (0.2-1.0); Creatinine Clr Calc Pharmacy 100.7 ml/min; Est GFR (African American) 99.2 ml/min; Est GFR (Non-African American) 85.6 ml/min; Globulin 2.5 gm/dl (2.5-4.0); Potassium 3.8 mmol/L (3.5-5.1); Total Protein 6.3 gm/dl (6.0-8.3)
[2021-10-25] MEDS: ATENOLOL 50 MG TABLET PO SCH (09:03)
[2021-10-25] MEDS: ATORVASTATIN 20 MG TAB PO SCH (09:03)
[2021-10-25] MEDS: PANTOprazole 40 MG TAB PO SCH (09:03)
[2021-10-25] MEDS: ENOXAPARIN INJ 40 MG/0.4 ML SYR SQ SCH (09:04)
[2021-10-25] MEDS: amLODIPine BESYLATE 5 MG TAB PO SCH (09:04)
--- NOTE | 2021-10-25 10:47 | Surgery Progress Note ---
Date of Service October 25, 2021 Assessment & Plan (1) Choledocholithiasis with acute cholecystitis: Plan: POD#3 ERCP/ POD#2 lap edie Patient doing well, tolerating diet. Pain managed. Wounds c/d/i Okay for discharge to home when cleared by medicine No further IV abx needed from our standpoint F/u in clinic with Dr. Orantes in 1-2 weeks, dispo instructions reviewed We will sign off, please call with any questions/concerns Admission and Anticipated Discharge Date Admission Date: October 22, 2021 Supervising Physician Co-Signing Physician Notes I personally saw and evaluated the patient with Arlene Monroy PA-C and agree with the assessment and plan. 60-year-old male postoperative day 2 laparoscopic cholecystectomy for acute cholecystitis and choledocholithiasis He seems to be doing well postoperatively Tolerating regular diet without issue Pain control as needed He can be discharged from a surgical standpoint Surgical sign off at this time, please call with any questions or concerns We will arrange for follow-up with me in 2 weeks Subjective Patient is feeling well. Pain is controlled. He is tolerating a diet. Physical Exam Physical Exam: awake/alert Gastrointestinal (Abdomen): Inspection/Auscultation: + abdominal surgical incision (c/d/i) Percussion/Palpation: abdomen soft Results & Data ([facility]) Vital Signs (Past 12 Hours) Vital Signs Temp Pulse Pulse Pulse Resp BP BP 10/25/21 07:30 36.6 C 62 20 158/92 H 10/25/21 07:18 51 L 10/25/21 03:39 37.1 C 61 18 135/76 10/25/21 00:00 51 L 10/24/21 22:51 36.7 C 53 L 18 180/87 H 187/86 H Pulse Ox 10/25/21 07:30 93 10/25/21 07:18 10/25/21 03:39 96 10/25/21 00:00 10/24/21 22:51 97 PG Care Time/CCT Total # of Minutes Spent Total Time Spent with Patient: Total time spent is greater than 50% in coordination of care (as documented) at patient's floor/unit and/or counseling patient: Coding Level of Care Code None Diagnoses Choledocholithiasis with acute cholecystitis K80.42
--- NOTE | 2021-10-25 12:21 | Discharge Summary ---
Date of Service October 25, 2021 Admission HPI Per Admitting Provider Pt is a 60 y/o M with hx of HTN, HLD, MICHAEL (not on CPAP), GERD came into the ER for 2 episodes of abd burning pain. Abd pain starts at the lower abd then radiates to the epigastric area. No associated N/V, dizziness, diarrhea or CP or SOB. He also noticed that his urine was dark in colour recently but denied any dysuria, hematuria, urinary frequency/urgency or fever. He had labs done at the clinic today, his LFTs were elevated therefore he was asked to go to the ER At bedside: pt denied any acute symptoms. Admission Exam Per Admitting Provider General:.NAD, well developed, well nourished, average body habitus HEENT:.Normocephalic and atraumatic, Normal Conjunctiva, EOMI, Sclera is non- icteric Lungs:.No signs of respiratory distress, CTA, no wheezing or crackles Heart:.Normal S1, S2, no murmur Abdominal:.obese abd,ND, Soft, NT, normal BS MSK:.No deformities of UE and LE, No leg edema Skin:.no rash or open wound Psych:.AAOx3, normal affec Principal Diagnosis choledocolithiasis with acute cholecystitis, renal mass Discharge Exam General: Lying comfortably in bed, not in distress, on room air HEENT: EOMI, ALLYSON, MMM Chest: Clear breath sounds bilaterally, no wheezes or crackles CVS: Regular rate and rhythm, normal heart sounds, no murmur Abdomen: Soft, incision sites clean dry intact, non tender, not distended, bowel sounds present Neuro: Awake, alert, oriented, conversing well, non focal Extremities: No cyanosis, clubbing or edema Discharge Data Allergies Allergy/AdvReac Type Severity Reaction Status Date / Time No Known Allergies Allergy Unverified 03/29/14 14:56 Consultations 10/22/21 16:07 Consult Gastroenterology Stat 10/22/21 16:28 Consult General Surgery Stat 10/22/21 16:51 ED Decision to Admit Stat 10/22/21 19:47 Consult General Surgery Routine 10/23/21 08:08 Consult Urology Routine Procedures Performed Operation Date: 10/22/21 17:55 Actual Procedures p Endoscopic Retrograde Cholangiopancreatogram, with Biliary Stent Placement(Not Applicable) - Kylah Mata DO Operation Date: 10/23/21 12:30 Actual Procedures p Laparoscopic Cholecystectomy(Not Applicable) - Dinesh Orantes DO Ordered Studies 10/22/21 13:09 US gallbladder Stat 10/22/21 18:00 FL ERCP biliary ductal Routine 10/22/21 21:29 CT Abd and Pelvis [CT abd pelvis IV con only] Routine Hospital Course (1) Choledocholithiasis with acute cholecystitis: (2) Right kidney mass: (3) HTN (hypertension): (4) HLD (hyperlipidemia): (5) MICHAEL (obstructive sleep apnea): Pt is a 60 y/o M with hx of HTN, HLD, MICHAEL (not on CPAP), GERD admitted for elevated LFTs with Gallstones Acute cholecystitis with choledocholithiasis - GB US and CT A/P reviewed- CT details as below - s/p ERCP 10/22 by GI with biliary sphincterotomy, gallstone extraction and biliary stent - S/p lap edie 10/23 by surgery- further management per surgical team - s/p IV zosyn-> being changed to augmentin to complete 10 day course as per GI recommendation - Tolerating low fat diet without issues, had bowel movement, ambulating independently, pain well controlled. Being discharged on 6 pills of oxy in case he needs it at home since NSAIDs and tylenol not recommended with his procedure and LFTs, but he has not required any oxy since yesterday. PDMP reviewed- never prescribed narcotics before. - Cleared by surgery for discharge and instructions provided by them - LFTs improving post ERCP - F/u surgery in 2 weeks and GI in 6 weeks Recommendations per GI include Avoid nonsteroidals for 1 week Continue antibiotics for total of 10 days Repeat ERCP for stent removal in [address] A/P 1. Cholelithiasis with evidence of acute cholecystitis. 2. A common bile duct stent is in place. There is no intrahepatic biliary duct dilatation and pneumobilia suggests patency of the stent. 3. A 3.7 cm exophytic mass arises from the interpolar right kidney. This should be considered renal cell carcinoma until proven otherwise. Follow-up with urology is recommended. 4. There is no evidence of metastatic disease in the abdomen or pelvis. 5. Bilateral nephrolithiasis. 6. Prostatomegaly with evidence of chronic bladder outlet obstruction. Right renal mass- suspicious for RCC- 3.7 cm exophytic mass detailed as above - seen in CT- seen by uro for further management- needs OP follow up once he recovers from this acute episode Hypokalemia- resolved with repletion HTN- on tenormin, BP elevated and norvasc added- being discharged on same. Recommended follow up with PCP in a week or further management. HLD- on statin GERD- on PPI Total Time Total Time Spent Total Time Spent (In Minutes): 40 Discharge Plan Discharge Items Patient Disposition: Home - Self-Care Reason For Visit: ABD PAIN WITH ELEVATED LFTS Discharge Diagnosis: choledocholithiasis with acute cholecystitis, right renal mass Activity: Per Instructions section Lifting: No more than 10 pounds Bathing Comment: may shower; no soaking in tubs/pools Exercise/Sports: Wait until after follow-up appointment Driving/Machine Use: no driving while taking any narcotics for pain Non-emergency contact: Primary Care Provider and Surgeon Call non-emergency contact if: you have any medication questions, your symptoms worsen, your pain is not controlled, your pain is concerning for you, you have a fever, your temperature is above 101.5, your wound has increased redness, your wound has increased drainage and your wound pain has increased Follow-up/Referrals: Dinesh Orantes DO [Physician] - (Please call to schedule follow up in clinic within 1-2 weeks) Rufino Velasquez DO [Primary Care Provider] - (Date & Time 11/01/2021 11:00 AM Provider Rufino Velasquez DO Department [facility] ) Diet: Low Fat Addtl Attending Provider Instructions: You may remove your outer surgical dressings on 10/25/21. You will have small white bandages on underneath called steri-strips. You may shower with these on, they will tend to fall off on their own within 7-10 days Continue the antibiotic augmentin twice daily for 1 more week Follow up with surgery in 2 weeks Follow up with GI in 6 weeks for stent removal Follow up with urology for further management of your right kidney mass We have added norvasc for your blood pressure Recommend follow up with your family doctor in a week for further management of your blood pressure. Do not take pain medications like advil, motrin, naproxen, meloxicam (NSAIDs) etc for 5 more days. I have prescribed some oxycodone in case you need it for pain control. Pending Studies at Discharge: Yes Studies:: surgical pathology Stand-Alone Forms: My [facility], Smoking Cessation Medications and DC Order Prescriptions: New amlodipine [Norvasc] 5 mg Tablet 5 mg PO BID Qty: 60 RF: 0 amoxicillin-pot clavulanate 875-125 mg tablet 1 tab PO BID Qty: 14 RF: 0 oxycodone 5 mg Tablet 5 mg PO Q8 PRN (Reason: pain) Qty: 6 RF: 0 Continued atorvastatin 20 mg tablet 20 mg PO DAILY RF: 0 omeprazole 20 mg capsule,delayed release(DR/EC) 20 mg PO DAILY RF: 0 atenolol 50 mg tablet 50 mg PO DAILY RF: 0 Discharge Orders: Discharge Order (Routine); Ordered 10/25/21 Ordered By: Jcarlos Mukherjee Admission Data Admit Date/Time: 10/22/21 17:54 Attending Provider: Jcarlos Mukherjee Admit Provider: Tamia Rodriguez Primary Care Provider: Rufino Velasquez Other Providers: Dinesh Orantes ; Kylah Mata ; Tamia Rodriguez ; Amado Modi ; Noe Escalona ; Shayan Simpson ; Rossy Johnston ; Rolo Melendez ; Abril Alberto ; Maude Bradshaw ; Jeannette Tang ; Jaime Palafox ; Fan Vital ; Kay Palacios ; Leeann Tang ; Reji Bardales Other Interventions: Discharge Summary Assessment (RN) Last Done: 10/25/21 11:30
== END 2021-10-25 13:22 | disposition home or self-care (01) | DRG 418 ==
LOC: ED 12:36 → OR 17:53 → SUATTDRO 17:54 → 2N 17:54

== ENCOUNTER 2022-01-20 05:45 | Observation (INO) ==
--- NOTE | 2022-01-14 16:32 | Anesthesiology Consultation ---
Date of Service January 14, 2022 Assessment & Plan (1) Encounter for pre-operative examination: - COVID screening: No known COVID-19 positive contacts or current COVID-19 related symptoms. Travel screen negative x 2+ weeks. Patient vaccinated. Patient was Covid positive 12/26 (home test) and 01/04 ([place]; [facility]). Symptoms at time: sore throat, cough > resolved per phone call update 01/14. Per patient, surgeon is not having him go in for preop Covid testing. Pt can proceed as scheduled without additional preop Covid testing or additional Covid contact precautions per 90 days protocol. - S/P Laparoscopic Cholecystectomy (10/23/21): Grade 2 view, MAC#4, ETT 7.5 at [facility] Chart Review Chart Review: Acceptable Risk for Surgery and Patient NOT seen in Pre Admission Testing History Surgery Operation Date: 01/20/22 08:40 Proposed Procedures p Robotic Laparoscopic Assisted Partial Right Nephrectomy Possible Radical - Rolo Melendez, DO Height/Weight Height: 6 ft Weight: 99.79 kg Allergies Allergy/AdvReac Type Severity Reaction Status Date / Time No Known Allergies Allergy Verified 12/31/21 15:06 Medications Home Medications Medication Instructions Recorded Confirmed Last Taken atenolol 50 mg tablet 50 mg PO QAM 10/22/21 12/31/21 Unknown atorvastatin 20 mg tablet 20 mg PO QAM 10/22/21 12/31/21 Unknown amlodipine 10 mg tablet 10 mg PO QAM 12/14/21 12/31/21 Unknown multivitamin 1 tab PO QAM 12/31/21 12/31/21 Unknown Past Medical History Medical History (Updated 01/14/22 @ 16:23 by Coretta Machado) Cancer Right renal mass High cholesterol Hypertension Sleep apnea Cannot tolerate CPAP Past Family History Family History Other No known health problems Past Surgical History Surgical History (Updated 01/14/22 @ 16:23 by Coretta Machado) History of colonoscopy History of ERCP 10/22/21 ([facility]) History of herniorrhaphy History of tooth extraction WTE Hx laparoscopic cholecystectomy Laparoscopic Cholecystectomy (10/23/21): Grade 2 view, MAC#4, ETT 7.5 at [facility] Social History Smoking Status: Never smoker Do You Dip or Chew Tobacco: No Hx Alcohol Use: Yes Alcohol type: wine alcohol intake frequency: a few times a month Hx Substance Use: No substance use type: does not use Lab Results Anesthesia Preop Results Results Anesthesia Widget: WBC 7.10 K/ul (4.8-10.8) 01/14/22 Hgb 14.3 g/dl (14.0-18.0) 01/14/22 Hct 43.1 % (40.1-51.0) 01/14/22 Plt 264 K/uL (130-400) 01/14/22 Na 139 mmol/L (136-145) 01/14/22 K 3.9 mmol/L (3.5-5.1) 01/14/22 Cl 106 mmol/L (98-107) 01/14/22 CO2 27 mmol/L (21-32) 01/14/22 BUN 24 mg/dl (6-23) H 01/14/22 Creat 1.17 mg/dl (0.6-1.4) 01/14/22 Glucose Level 83 mg/dl (70-99(Fasting)) 01/14/22 Urine Color Yellow 01/14/22 Urine Appearance Clear (Clear) 01/14/22 Urine pH 5.5 (4.5-7.5) 01/14/22 Urine Specific [place] 1.025 (1.000-1.030) 01/14/22 Urine Protein Negative (Negative) 01/14/22 Urine Glucose (UA) Negative (Negative) 01/14/22 Urine Ketones Trace (Negative) H 01/14/22 Urine Blood Negative (Negative) 01/14/22 Urine Nitrite Negative (Negative) 01/14/22 Urine Bilirubin Negative (Negative) 01/14/22 Urine Urobilinogen Negative (Negative) 01/14/22 Urine Leukocyte Esterase Trace (Negative) H 01/14/22 Urine WBC (Auto) 1-5 /hpf (0-5) 01/14/22 Urine RBC (Auto) 0-4 /hpf (0-4) 01/14/22 Urine Hyaline Casts (Auto) 1-5 /lpf (0-5) 01/14/22 Urine Epithelial Cells (Auto) 10-20 /lpf (0-5) H 01/14/22 Urine Bacteria (Auto) Negative (Negative) 01/14/22 Testing Electrocardiogram Date: 10/22/21 Sinus bradycardia 55 bpm. Otherwise normal ECG. *Poor data quality. Chest X-Ray Date: 10/22/21 FINDINGS: Lung volumes are normal. Lungs are clear. There is no pneumothorax or pleural effusion. Cardiac size is normal. Mediastinal contours are normal. There is no evidence for pulmonary edema. IMPRESSION: No acute cardiopulmonary findings.
[2022-01-20] MEDS ORDERED: HEPARIN SOD 5,000 UNIT/0.5 ML VIAL SQ SCH (06:00)
[2022-01-20] MEDS ORDERED: LR 15ML/HR IV SCH (06:00)
[2022-01-20] MEDS ORDERED: ceFAZolin 2000MG 2,000 MG/15 ML SYR IV SCH (06:00)
--- NOTE | 2022-01-20 06:46 | History & Physical Report ---
Date of Service January 20, 2022 Assessment & Plan (1) Right kidney mass: Plan Right anterior mid pole 3 cm mass of kidney. Discussed concern for Renal Mass and Renal Cell Carcinoma. Discussed management of RCC and lack of chemotherapy or radiation options. All options including surgery, ablation, and conservative management as well as targeted therapies. Risks and benefits discussed at length for procedure. These include bleeding, infection, injury to surrounding tissues or organs, and risks associated with anesthesia. Patient states understanding and agrees to proceed. Will sign consent and proceed with robot asst right partial nephrectomy History of Present Illness Primary Care Provider: Rufino Velasquez DO Patient here for procedure. No changes in medical issues. No major changes in urinary issues. Continued issues and concerns. No change in pain or discomfort. No severe fevers or chills. No chest pain or shortness of breath. Risks and benefits discussed at length for procedure. These include bleeding, infection, injury to surrounding tissues or organs, and risks associated with anesthesia. Patient and/or family states understanding and agrees to proceed. Consent and supporting information completed. Allergies Allergy/AdvReac Type Severity Reaction Status Date / Time No Known Allergies Allergy Verified 01/20/22 05:56 Home Medications Medication Instructions Recorded Confirmed Type atenolol 50 mg tablet 50 mg PO QAM 10/22/21 01/20/22 History atorvastatin 20 mg tablet 20 mg PO QAM 10/22/21 01/20/22 History amlodipine 10 mg tablet 10 mg PO QAM 12/14/21 01/20/22 History multivitamin 1 tab PO QAM 12/31/21 01/20/22 History Past Med/Surg History Medical History Cancer Right renal mass High cholesterol Hypertension Sleep apnea Cannot tolerate CPAP Surgical History History of colonoscopy History of ERCP 10/22/21 ([facility]) History of herniorrhaphy History of tooth extraction WTE Hx laparoscopic cholecystectomy Laparoscopic Cholecystectomy (10/23/21): Grade 2 view, MAC#4, ETT 7.5 at [facility] Family History Other No known health problems Social History Smoking Status: Never smoker Second Hand Exposure: No; Do You Dip or Chew Tobacco: No; Hx Alcohol Use: Yes Alcohol type: wine Hx Substance Use: No Preferred Language: Tristanian Communication Ability: Effective Motorcycle Racer Required: No Beliefs That Will Affect Care: None Current Living Situation: Significant Other Other Information That Helps Us Care for You: No Feels Safe at Home: Yes Safety Concerns: Feels Safe At This Time Assistive Devices: Glasses Review of Systems All systems reviewed & are unremarkable except as noted in HPI & below Physical Exam Physical Exam: General: Alert/Arousable. No Acute illness. . HEENT: Inspection normal. Normal inspection of face. Normal inspection of neck. Psychologic: Normal affect/No change in mentation. Respiratory: No use of accessory muscles. No respiratory changes or exacerbation or changes with tachypnea or dyspnea. Cardiovascular: No tachycardia Skin: [place] and Dry. No new rashes or visible lesions. Abdomen: Normal inspection. No guarding. Results & Data ([facility]) Vital Signs (Past 12 Hours) Vital Signs Temp Pulse Resp BP Pulse Ox O2 Del Method 01/20/22 06:01 36.6 C 49 L 18 172/95 H 97 Room Air 01/20/22 06:01 Room Air, Other PG Care Time/CCT Total # of Minutes Spent Total Time Spent with Patient: Total time spent is greater than 50% in coordination of care (as documented) at patient's floor/unit and/or counseling patient: Coding Level of Care Code None Diagnoses Right kidney mass N28.89
[2022-01-20] MEDS ORDERED: ROCURONIUM BROMIDE 10 MG/ML 5 ML VIAL IV ONE ×3 (07:02→09:17)
[2022-01-20] MEDS ORDERED: PHENYLEPHRINE 100MCG/ML 5ML SYR ONE (07:02)
[2022-01-20] MEDS ORDERED: LIDOCAINE 2% MPF LOCAL 5 ML VIAL INFIL ONE (07:02)
[2022-01-20] MEDS ORDERED: DEXAMETHASONE SOD INJ 4 MG/ML VIAL ONE (07:02)
[2022-01-20] MEDS ORDERED: PROPOFOL IV EMULSION 10 MG/ML 20 ML VIAL IV ONE ×2 (07:02→07:51)
[2022-01-20] MEDS ORDERED: fentaNYL citrate 100 MCG/2 ML VIAL ONE (07:02)
[2022-01-20] MEDS ORDERED: GLYCOPYRROLATE 0.2 MG/ML VIAL ONE (07:02)
[2022-01-20] MEDS ORDERED: NEOSTIGMINE METHYLSULFATE 1 MG/ML 10ML VIAL ONE (07:02)
[2022-01-20] MEDS ORDERED: ONDANSETRON INJ 2 MG/ML 2 ML VIAL ONE (07:02)
[2022-01-20] MEDS ORDERED: ePHEDrine sulfate 50 MG/ML SYR ONE (07:02)
[2022-01-20] MEDS ORDERED: LARYING-O-JET KIT (LTA) ONE (07:02)
[2022-01-20] MEDS ORDERED: MIDAZOLAM HCL 1 MG/ML 2ML VIAL ONE (07:03)
[2022-01-20] MEDS ORDERED: BUPIVACAINE 0.5 % 5 MG/1 ML MPF 30ML VIAL ONE (07:04)
[2022-01-20] MEDS ORDERED: PROMETHAZINE HCL 12.5 MG in SODIUM CHLORIDE 0.9% 50 ML IV PRN (07:18)
[2022-01-20] MEDS ORDERED: ONDANSETRON INJ 2 MG/ML 2 ML VIAL IV PRN ×2 (07:18→12:00)
[2022-01-20] MEDS ORDERED: ATROPINE SULFATE 0.1 MG/ML 10ML SYR IV PRN (07:18)
[2022-01-20] MEDS ORDERED: LABETALOL HCL IV 5 MG/ML 20ML IV PRN (07:18)
[2022-01-20] MEDS ORDERED: HYDROmorphone INJ 2 MG/ML SYR/VIAL ONE (08:17)
[2022-01-20] MEDS ORDERED: TISSEEL FIBRIN SEALANT 4ML TOP ONE (10:21)
[2022-01-20] MEDS ORDERED: FLOSEAL HEMOSTATIC MATRIX 10ML TOP ONE (10:21)
--- NOTE | 2022-01-20 10:45 | Operative Report ---
PG Post Operative Report Pre & Post Diagnosis Operation Date: 01/20/22 07:30 Pre-Op Diagnosis: Right Kidney Mass Post-Op Diagnosis: Right Kidney Mass I identified the patient and participated in the time-out.: Yes Procedure Operation Date: 01/20/22 07:30 Actual Procedures p Robotic Assisted Laparoscopic Right Partial Nephrectomy(Right) - Rolo Melendez DO Surgeon Rolo Melendez, II, DO [employer] Supervisor Catia DENG and Preston TORRES Estimated Blood Loss 50 Findings Consistent with Post-Op Diagnosis Anterior Mid pole renal mass. Moderate adhesion on liver Specimens Right renal mass Drains 18 Fr Cueva Anesthesia Type General Complications none Disposition Disposition: Recovery Room Indications Patient with right renal mass suspicious for malignancy. Risks and benefits discussed at length. Description of Procedure The patient was brought to the operative suite and placed under general endotracheal intubation anesthesia in the supine position. The patient was transferred to lateral position with the right flank exposed. The patient was placed into a flex'ed position and then placed into mild reverse Trendelenberg. At this point, the patient prepped and draped in the usual sterile fashion and a timeout was completed. Preoperative weight based antibiotics had been given. RICHARD's and SCD's were placed on the patient's lower extremities. A catheter was placed by nursing using sterile technique. With the time out completed, the patient was flexed and the skin was marked. Along the lateral midclavicular line a small area was anesthetized. A small incision was made into the skin and subcutaneous tissues. A Varess needle was selected and placed. The needle was easily moved and it was irrigated and aspirated without any issues or concerns for placement. Insufflation commenced. The patient was then marked. The three robotic ports and two pathologist assistant ports were marked. The tissue was anesthetized. The 12 mm and the 8 mm ports were placed. The abdominal cavity was further insufflated. The laparoscopic camera was placed and the abdominal cavity inspected. No concerning features were noted. At this point, the remaining 8mm working ports were placed. The skin was anesthetized down to fascia and an approx 1 cm incision was made to place the 2 x 8mm ports. The two 12 mm pathologist assistant ports were also placed in similar fashion under direct visualization. The robot was positioned and docked. The camera was placed and all trocars were positioned under direct visualization. Rossy TORRES was integral in port placement, camera utilization, and docking procedure. She also assisted during the lysis of adhesions. She remained in sterile attire and then proceeded to assist the remainder of the case. The colon was mobilized medially to expose the retroperitoneum and the area assessed. Adhesions were freed to allow mobilization. A small amount of further adhesions were noted from the colon and were freed. These were dissected with blunt technique. Cautery was used to assist dissection and control bleeding. The retroperitoneal fat was assessed. Starting distally the retroperitoneum was dissected and care was taken to dissect down near the IVC. The gonadal vein and ureter were identified. This was then followed superiorly. Dissection stayed toward the midline along the IVC and the ureter and gonadal vein were followed up towards the renal hilum. The dissection was followed to the renal pelvis. The Renal Vein was identified and exposed. Dissection was taken further superior. The Renal Artery and Vein were then cleaned and exposed. Clamp placement was assessed and good access was achieved. The perirenal fat anterior to the kidney was then dissected. The mass and surrounding tissues were exposed. The kidney was then further mobilized. The ultrasound probe was placed and the mass further examined. The edges were marked. The Vessels were assessed a final time. At this point, Dr Bardales assisted with the removal of the mass and closure of the nephrotomy. A bulldog clamp was placed on the artery and then on the vein. The kidney danika ropriately blanched. The previously marked margins were used to start the incision into the kidney. The mass was completely excised without evidence of penetrating into the capsule of the mass. The mass was quite deep and dissection was taken down towards the collecting system. The base of resection bed was assessed and small vessels were cauterized. The collecting system did appear to be opened in a small area. A barbed suture was selected and the nephrotomy closed. Care was taken to close the collecting system opening. 3-0 Vicryl sutures were then used to close the edges of the elliptical opening. Three Vicryl sutures were used to close and bolster the edges. At this point, the bulldog clamps were removed. Warm ischemia time, in total, was 14 minutes. The kidney was full assessed after removal of clamps. No bleeding or other major areas of concern. Weck and Hemolock clips were used to bolster and tightened to approximate the edges. Surgicel hemostatic agent sheets were placed over the vessels and on the incised edge. Hemostatic agents Tisseel and Floseal were also placed. Hemostatic agent was also placed on the vessels. No major bleeding or other issues. Gerota's tissues were replaced utilizing clips to cover the area. The excised mass was placed in an endocatch bag for removal. Dr. Bardales assisted with the entirety of this portion of the case. The entire dissection space was inspected one final time. No bleeding or injuries or areas of concern were noted. No tumor or other concerning features were noted. At this point, the robot was undocked and moved away from the patient. The port sites were all assessed laparoscopically. The endoscopic bag was a the midline supraumbilical incision. The superior 12mm port site was closed with the Shiva-Wright device and were closed with Vicryl suture. The other ports were assessed and no issues observed. The inferior pathologist assistant port was opened further exposing fascia which was then opened in order to removed the mass within the bag. A PDS suture was used to close fascia. The skin at each site was closed with a running monocryl suture. The area was cleaned and bandages placed on each incision. The patient was cleaned and bandaged. The patient was moved back into the supine position The patient was cleaned, aroused from anesthesia, and transferred to the pacu in stable condition having tolerated the procedure well with no complications. I was present and participated in all aspects of the procedure. BRIAN Otero was critical in the portions as mentioned above. I attest to the content of the Intraoperative Record and any orders documented therein. Any exceptions are noted below.
[2022-01-20] MEDS: HYDROmorphone INJ 1 MG/ML SYRINGE IV PRN ×4 (11:12→11:27)
[2022-01-20 11:16] LABS: Basophils # (auto) 0.04 K/uL (0-0.2); Basophils % (auto) 0.3 %; Eosinophils # (auto) 0.05 K/uL (0-0.50); Eosinophils % (auto) 0.3 %; Hematocrit (blood only) 45.1 % (40.1-51.0); Hemoglobin 15.2 g/dl (14.0-18.0); Immature Granulocytes # (auto) 0.07 K/uL (0.00-0.02); Immature Granulocytes % (auto) 0.5 %; Lymphocytes # (auto) 1.41 K/uL (1.2-3.4); Lymphocytes % (auto) 9.6 %; Mean Corpuscular Hemoglobin 29.9 pg (25.0-34.0); Mean Corpuscular Hgb Conc 33.7 g/dL (32.0-36.0); Mean Corpuscular Volume 88.8 fL (80.0-100.0); Mean Platelet Volume 9.9 fL (9.4-12.4); Monocytes # (auto) 0.59 K/uL (0.24-0.82); Neutrophils % (auto) 85.3 %; Platelet Count 251 K/uL (130-400); RDW Coefficient of Variation 12.6 % (11.5-14.5); RDW Standard Deviation 41.4 fL (36.4-46.3); Red Blood Count 5.08 M/uL (4.63-6.08); White Blood Count 14.76 K/ul (4.8-10.8)
[2022-01-20 11:42] LABS: BUN Creatinine Ratio 16.5 (10-20); Calcium 8.6 mg/dl (8.5-10.1); Est GFR (African American) 74.4 ml/min; Est GFR (Non-African American) 64.2 ml/min; Potassium 4.3 mmol/L (3.5-5.1)
[2022-01-20] MEDS ORDERED: MoRPHine SULFATE 2 MG/ML CARP IV PRN (12:00)
[2022-01-20] MEDS ORDERED: MoRPHine SULFATE 4 MG/ML 1 ML CARP\\VIAL IV PRN (12:00)
[2022-01-20] MEDS ORDERED: oxyCODONE HCL IR 5 MG TAB (IMMEDIATE RELEASE) PO PRN ×2 (12:00)
--- NOTE | 2022-01-20 12:37 | Anesthesiology Progress Note ---
Date of Service January 20, 2022 Anesthesia Post Procedure Vital Signs Vital Signs: Temp Pulse Pulse Resp BP Pulse Ox O2 Del Method 01/20/22 12:15 64 20 126/75 93 Oxymask 01/20/22 12:00 36.3 C L 72 16 129/76 96 Oxymask 01/20/22 11:50 61 16 121/76 98 Oxymask 01/20/22 11:40 57 L 16 125/71 98 Oxymask 01/20/22 11:30 56 L 16 142/74 H 94 Oxymask 01/20/22 11:20 36.4 C L 62 16 132/76 94 Oxymask 01/20/22 11:10 65 16 132/74 99 Oxymask 01/20/22 11:00 65 16 142/82 H 98 Oxymask 01/20/22 10:50 70 16 138/82 95 Oxymask 01/20/22 10:42 36.1 C L 66 14 147/91 H 96 Oxymask 01/20/22 06:01 36.6 C 49 L 18 172/95 H 97 Room Air 01/20/22 06:01 Room Air, Other O2 Flow Rate 01/20/22 12:15 5 01/20/22 12:00 5 01/20/22 11:50 5 01/20/22 11:40 5 01/20/22 11:30 5 01/20/22 11:20 5 01/20/22 11:10 5 01/20/22 11:00 5 01/20/22 10:50 10 01/20/22 10:42 10 01/20/22 06:01 01/20/22 06:01 Transfer of Care Handoff Completed per policy Notes Mental Status: alert / awake / arousable Patient Amnestic to Procedure: Yes Nausea / Vomiting: adequately controlled Pain: adequately controlled Airway Patency, RR, SpO2: stable & adequate BP & HR: stable & adequate Hydration State: stable & adequate Anesthetic Complications: no major complications apparent
[2022-01-20] MEDS ORDERED: ceFAZolin 2,000 MG/15 ML IV PUSH IV ONE (14:23)
[2022-01-20] MEDS: ceFAZolin 2000MG 2,000 MG/15 ML SYR IV SCH ×2 (14:25→19:51)
[2022-01-20] MEDS: LACTATED RINGER'S 1,000 ML IV SCH ×2 (17:36→19:51)
[2022-01-20] MEDS: HEPARIN SOD 5,000 UNIT/0.5 ML VIAL SQ SCH (19:50)
[2022-01-20] MEDS: DOCUSATE SODIUM 100 MG CAP PO SCH (19:51)
[2022-01-21] MEDS: LACTATED RINGER'S 1,000 ML IV SCH (05:37)
[2022-01-21 06:08] LABS: Basophils # (auto) 0.02 K/uL (0-0.2); Basophils % (auto) 0.2 %; Eosinophils # (auto) 0.01 K/uL (0-0.50); Eosinophils % (auto) 0.1 %; Hematocrit (blood only) 41.9 % (40.1-51.0); Hemoglobin 14.1 g/dl (14.0-18.0); Immature Granulocytes # (auto) 0.07 K/uL (0.00-0.02); Immature Granulocytes % (auto) 0.6 %; Lymphocytes # (auto) 1.06 K/uL (1.2-3.4); Lymphocytes % (auto) 9.6 %; Mean Corpuscular Hemoglobin 30.2 pg (25.0-34.0); Mean Corpuscular Hgb Conc 33.7 g/dL (32.0-36.0); Mean Corpuscular Volume 89.7 fL (80.0-100.0); Mean Platelet Volume 9.9 fL (9.4-12.4); Monocytes # (auto) 1.27 K/uL (0.24-0.82); Monocytes % (auto) 11.5 %; Neutrophils # (auto) 8.62 K/uL (1.4-6.5); Platelet Count 249 K/uL (130-400); RDW Coefficient of Variation 13.1 % (11.5-14.5); RDW Standard Deviation 42.6 fL (36.4-46.3); Red Blood Count 4.67 M/uL (4.63-6.08); White Blood Count 11.05 K/ul (4.8-10.8)
[2022-01-21 06:30] LABS: BUN Creatinine Ratio 17.1 (10-20); Calcium 8.6 mg/dl (8.5-10.1); Est GFR (African American) 68.9 ml/min; Est GFR (Non-African American) 59.4 ml/min; Potassium 4.3 mmol/L (3.5-5.1)
[2022-01-21] MEDS: ACETAMINOPHEN 325 MG TAB PO PRN ×3 (08:03→20:04)
[2022-01-21] MEDS: ATORVASTATIN 20 MG TAB PO SCH (08:04)
[2022-01-21] MEDS: DOCUSATE SODIUM 100 MG CAP PO SCH ×2 (08:04→20:00)
[2022-01-21] MEDS: HEPARIN SOD 5,000 UNIT/0.5 ML VIAL SQ SCH ×2 (08:05→20:01)
[2022-01-21] MEDS: ATENOLOL 50 MG TABLET PO SCH (08:05)
[2022-01-21] MEDS: amLODIPine BESYLATE 5 MG TAB PO SCH (08:05)
--- NOTE | 2022-01-21 10:26 | Urology Progress Note ---
Date of Service January 21, 2022 Assessment & Plan (1) Right kidney mass: Plan Postop day #1 status post Robotic Assisted Laparoscopic Right Partial Nephrectomy Patient doing well, progressing as expected. Afebrile, hemodynamically stable. Labs reviewed - WBC 11.05, Hgb 14.1, Cre atinine 1.29. OK to remove Cueva catheter and monitor for ability to void. Advance diet. Encourage ambulation. Continue supportive care and pain management. Will reassess after lunch. Anticipate discharge home later today or tomorrow pending patient progression. Admission and Anticipated Discharge Date Admission Date: January 20, 2022 Subjective POD #1 s/p robotic right partial nephrectomy Patient examined at bedside this AM. Awake, sitting in bedside chair on arrival. No acute issues overnight. Cueva catheter intact, draining clear yellow urine. Tolerating clear liquid diet. No nausea or vomiting. Some belching, no flatus. Reports moderate abd pain, managing with pain medication. Ambulated last night and this morning without issue. Incisions appropriate, Dermabond intact. Review of Systems Constitutional: as per Subjective / HPI Gastrointestinal: as per Subjective / HPI Genitourinary: + as per Subjective / HPI Physical Exam Constitutional: no acute distress Respiratory: no respiratory distress and no labored breathing Gastrointestinal (Abdomen): Percussion/Palpation: abdomen soft; abdomen nontender Incisions appropriate, Dermabond intact Skin: Warm and dry Neurologic: moves all extremities and awake Psychiatric: A+Ox3, euthymic affect Genitourinary: Urine is clear yellow Results & Data ([facility]) Vital Signs (Past 12 Hours) Vital Signs Temp Pulse Resp BP Pulse Ox O2 Del Method 01/21/22 07:55 Room Air 01/21/22 07:28 36.6 C 75 16 142/82 H 92 Room Air 01/21/22 04:30 36.6 C 83 18 147/84 H 92 Room Air PG Care Time/CCT Total # of Minutes Spent Total Time Spent with Patient: Total time spent is greater than 50% in coordination of care (as documented) at patient's floor/unit and/or counseling patient: Coding Level of Care Code None Diagnoses Right kidney mass N28.89
[2022-01-22 06:20] LABS: Basophils # (auto) 0.04 K/uL (0-0.2); Basophils % (auto) 0.3 %; Eosinophils # (auto) 0.46 K/uL (0-0.50); Eosinophils % (auto) 3.5 %; Hematocrit (blood only) 42.4 % (40.1-51.0); Hemoglobin 14.3 g/dl (14.0-18.0); Immature Granulocytes # (auto) 0.05 K/uL (0.00-0.02); Immature Granulocytes % (auto) 0.4 %; Lymphocytes # (auto) 1.23 K/uL (1.2-3.4); Lymphocytes % (auto) 9.3 %; Mean Corpuscular Hemoglobin 29.9 pg (25.0-34.0); Mean Corpuscular Hgb Conc 33.7 g/dL (32.0-36.0); Mean Corpuscular Volume 88.5 fL (80.0-100.0); Mean Platelet Volume 10.1 fL (9.4-12.4); Monocytes # (auto) 1.52 K/uL (0.24-0.82); Monocytes % (auto) 11.5 %; Neutrophils # (auto) 9.88 K/uL (1.4-6.5); Platelet Count 236 K/uL (130-400); RDW Coefficient of Variation 13.2 % (11.5-14.5); RDW Standard Deviation 42.6 fL (36.4-46.3); Red Blood Count 4.79 M/uL (4.63-6.08); White Blood Count 13.18 K/ul (4.8-10.8)
[2022-01-22 06:38] LABS: BUN Creatinine Ratio 18.8 (10-20); Calcium 8.8 mg/dl (8.5-10.1); Creatinine Clr Calc Pharmacy 86.4 ml/min; Est GFR (African American) 81.7 ml/min; Est GFR (Non-African American) 70.5 ml/min
[2022-01-22] MEDS: ATENOLOL 50 MG TABLET PO SCH (08:42)
[2022-01-22] MEDS: HEPARIN SOD 5,000 UNIT/0.5 ML VIAL SQ SCH (08:42)
[2022-01-22] MEDS: DOCUSATE SODIUM 100 MG CAP PO SCH (08:42)
[2022-01-22] MEDS: amLODIPine BESYLATE 5 MG TAB PO SCH (08:43)
[2022-01-22] MEDS: ATORVASTATIN 20 MG TAB PO SCH (08:43)
--- NOTE | 2022-01-22 08:55 | Urology Progress Note ---
Date of Service January 22, 2022 Assessment & Plan (1) Right kidney mass: Plan: Status post partial nephrectomy Discharge home this morning Labs stable, vital stable, good urine output, progressing appropriately Admission and Anticipated Discharge Date Admission Date: January 20, 2022 Subjective Subjectively feeling well Tolerating his breakfast Has been ambulatory Pain well controlled No flatus or bowel movement yet but also not nauseated or particularly distended Physical Exam Physical Exam: Incisions appropriate Results & Data ([facility]) Vital Signs (Past 12 Hours) Vital Signs Temp Pulse Resp BP Pulse Ox O2 Del Method 01/22/22 07:08 36.5 C 86 16 155/88 H 93 Room Air 01/21/22 22:27 36.7 C 74 18 156/87 H 94 Room Air PG Care Time/CCT Total # of Minutes Spent Total Time Spent with Patient: Total time spent is greater than 50% in coordination of care (as documented) at patient's floor/unit and/or counseling patient: Coding Level of Care Code None Diagnoses Right kidney mass N28.89
--- NOTE | 2022-01-28 14:59 | Discharge Summary ---
Date of Service January 28, 2022 Admission HPI Per Admitting Provider Patient here for procedure. No changes in medical issues. No major changes in urinary issues. Continued issues and concerns. No change in pain or discomfort. No severe fevers or chills. No chest pain or shortness of breath. Risks and benefits discussed at length for procedure. These include bleeding, infection, injury to surrounding tissues or organs, and risks associated with anesthesia. Patient and/or family states understanding and agrees to proceed. Consent and supporting information completed. Admission Exam Per Admitting Provider See H&P Principal Diagnosis Renal Mass Discharge Exam General: Alert/Arousable. No Acute illness. . HEENT: Inspection normal. Normal inspection of face. Normal inspection of neck. Psychologic: Normal affect/No change in mentation. Respiratory: No use of accessory muscles. No respiratory changes or exacerbation or changes with tachypnea or dyspnea. Cardiovascular: No tachycardia Skin: [place] and Dry. No new rashes or visible lesions. Abdomen: Normal inspection. No guarding. Discharge Data Allergies Allergy/AdvReac Type Severity Reaction Status Date / Time No Known Allergies Allergy Verified 01/20/22 05:56 Procedures Performed Operation Date: 01/20/22 07:30 Actual Procedures p Robotic Assisted Laparoscopic Right Partial Nephrectomy(Right) - Rolo Melendez DO Hospital Course (1) Right kidney mass: Status post partial nephrectomy Discharge home this morning Labs stable, vital stable, good urine output, progressing appropriately Total Time Total Time Spent Total Time Spent (In Minutes): 10 minutes Total Time Includes: Examination of the Patient, Discharge Planning, Medication Reconciliation and Communication With Other Providers Discharge Plan Discharge Items Patient Disposition: Home - Self-Care Reason For Visit: Right Kidney Mass Discharge Diagnosis: Right Kidney Mass Activity: Per Instructions section Lifting: No more than 25 pounds Bathing Comment: Ok to shower. No tubs baths or soaks. Sexual Activity: Wait until after follow-up appointment Exercise/Sports: Wait until after follow-up appointment Driving/Machine Use: Do not drive if taking prescription pain medication. Non-emergency contact: Surgeon and Urologist Call non-emergency contact if: you have any medication questions, your pain is not controlled, your pain is worsening, you have a fever, your wound has increased redness, your wound has increased drainage and your wound pain has increased Follow-up/Referrals: Rolo Melendez DO [Physician] - 02/08/22 8:20 am (Virtual phone visit) Rufino Velasquez DO [Primary Care Provider] - Diet: Regular Addtl Attending Provider Instructions: Please take all medications as prescribed and keep all follow-ups as scheduled. Please call the urology office at [phone] with any questions, concerns or need to reschedule appointments for any reason. We are happy to assist you. Recovering at home: We recommend having someone with you for the first few days after surgery to help care for you. It is okay to shower tomorrow. Please avoid swimming, bathing or using hot tub until incisions are well healed. Avoid driving until you are not requiring pain medication any further. Walk at least a few times a day. Increase your distance, as you feel able. Stairs in your home are okay. Please avoid strenuous or sexual activity until your follow-up. We recommend using stool softener (i.e. Colace) to prevent constipation and straining, especially the first two weeks post operatively. Call [facility] at [phone] if you experience: Chest pain or trouble breathing (call [phone] or go to the hospital). Fever of 101F or higher Symptoms of infection at incision site, including redness or swelling, warmth, or bad-smelling drainage Pain that is not controlled with medicines Difficulty or inability to urinate. Pending Studies at Discharge: Yes (pathology) Stand-Alone Forms: [facility], Opioid Pain Management, Work/School Release, Smoking Cessation Medications and DC Order Prescriptions: New hydrocodone-acetaminophen 5-325 mg tablet 1 tab PO Q6H PRN (Reason: pain) Qty: 15 0RF Continued amlodipine 10 mg tablet 10 mg PO QAM atorvastatin 20 mg tablet 20 mg PO QAM atenolol 50 mg tablet 50 mg PO QAM multivitamin Tablet 1 tab PO QAM Discharge Orders: Discharge Order (Routine); Ordered 01/22/22 Ordered By: Shayan Genao/Other Patient Handouts: How Your Kidneys Work Admission Data Admit Date/Time: 01/20/22 10:44 Attending Provider: Rolo Melendez Admit Provider: Rolo Melendez Primary Care Provider: Rufino Velasquez Other Interventions: Discharge Summary Assessment (RN) Last Done: 01/22/22 13:10 Coding Level of Care Code D/C DAY MANAGEMENT <30 MINS Diagnoses Right kidney mass N28.89
--- NOTE | 2022-02-02 05:32 | Coding Query ---
PATHOLOGY To promote full compliance with coding requirements relating to patient care, physician participation is requested in all cases of oxyacetylene burner uncertainty. Please assist us with the question(s) below: Please review the Pathology report and please document any relevant diagnosis(es) below: Diagnosis(es): Oncocytoma s/p Partial nephrectomy Thank you CLAUDIA Yan [facility]
== END 2022-01-22 14:32 | disposition home or self-care (01) | DRG 658 ==
LOC: ASU 05:45 → 3E 10:44 → INTOOBSV 10:44